=== PATIENT | female | born 1935 | race Caucasian/White ===

== ENCOUNTER 2020-01-02 13:31 | Observation (INO) | payer MEDICARE, OTHER ==
[2020-01-02 14:38] LABS: BASOPHILS % (AUTO) 0.2 %; EOSINOPHILS % (AUTO) 0.1 %; HGB - HEMOGLOBIN 7.7 g/dL (12.0-16.0); LYMPHOCYTES % (AUTO) 24.1 %; MEAN CORPUSCULAR HEMOGLOBIN 27.7 pg (27.0-31.0); MEAN CORPUSCULAR HGB CONC 30.2 g/dL (32.0-36.0); MEAN CORPUSCULAR VOLUME 91.7 fL (81.0-99.0); MEAN PLATELET VOLUME 12.2 fL (7.9-10.8); MONOCYTES % (AUTO) 9.4 %; NEUTROPHILS % (AUTO) 54.5 %; PLT - PLATELET COUNT 88 10^3/uL (130-450); RED BLOOD COUNT 2.78 10^6/uL (4.20-5.40); RED CELL DISTRIBUTION WIDTH 22.5 % (12.0-15.0); WHITE BLOOD COUNT 9.6 x10^3/uL (4.8-10.8)
[2020-01-02 14:41] LABS: ABNORMAL LYMPHS % (MANUAL) 0 %
[2020-01-02 14:42] LABS: INR 1.3 (0.8-1.2)
[2020-01-02 14:50] LABS: ALBUMIN 3.9 g/dL (3.2-5.5); ALBUMIN/GLOBULIN RATIO 1.4 (1.0-2.2); BILIRUBIN,TOTAL 1.3 mg/dL (0.2-1.0); CALCIUM 8.8 mg/dL (8.5-10.3); PARTIAL THROMBOPLASTIN TIME 27.6 secs (24.9-33.3); TOTAL PROTEIN 6.7 g/dL (6.7-8.2)
[2020-01-02 15:13] LABS: BAND NEUTROPHILS % (MANUAL) 6 %; EOSINOPHILS # (MANUAL) 0.1 10^3/uL (0-0.7); LYMPHOCYTES # (MANUAL) 2.4 10^3/uL (1.5-3.5); LYMPHOCYTES % (MANUAL) 25 %; METAMYELOCYTES % (MANUAL) 6 %; MONOCYTES # (MANUAL) 0.5 10^3/uL (0.0-1.0); MYELOCYTES % (MANUAL) 5 %
[2020-01-02 15:16] LABS: PLATELET ESTIMATE, MANUAL DECREASED (<130,000) (NORMAL)
[2020-01-02 15:17] LABS: DIFFERENTIAL COMMENT MANUAL DIFFERENTIAL; PLATELET MORPHOLOGY NORMAL APP (NORMAL)
[2020-01-02 15:30] LABS: BILIRUBIN,URINE NEGATIVE (NEGATIVE); GLUCOSE, URINE (UA) NEGATIVE (NEGATIVE); KETONES,URINE (UA) NEGATIVE (NEGATIVE); LEUKOCYTE ESTERASE, URINE MODERATE (NEGATIVE); NITRITE,URINE POSITIVE (NEGATIVE); OCCULT BLOOD,URINE TRACE-INTA (NEGATIVE); PH,URINE 7.5 PH (5.0-7.5); PROTEIN,URINE 30 mg/dL (NEGATIVE); UROBILINOGEN,URINE 0.2 (NORMAL) E.U./dL (NORMAL)
[2020-01-02 15:47] LABS: CLARITY,URINE HAZY (CLEAR)
[2020-01-02] MEDS ORDERED: cefTRIAXone 1 GM VIAL IVP STA (15:47)
[2020-01-02] MEDS ORDERED: SODIUM CHLORIDE 0.9% 1,000 ML IV STA ×2 (15:48)
--- NOTE | 2020-01-02 15:50 | ED Physician Documentation ---
History of Present Illness - Stated complaint Stated Complaint: WEAKNESS - Chief complaint Chief Complaint: General - History obtained from History obtained from: Patient, Family - History of Present Illness Timing: Today Pain level max: 0 Pain level now: 0 - Additonal information Additional information: 84-year-old female presents to the emergency department with generalized weakness today. She apparently has some sort of myeloproliferative disorder, family is unsure what her actual diagnosis is. She is followed at [facility] in [place]. They state that normally she is unable to take care of herself, today she has been confined to a wheelchair. She had chills this morning. No cough. No rhinorrhea or congestion. Nothing makes it better or worse. Has had to have blood transfusions in the past, does not know what her normal hemoglobin is. Review of Systems Ten Systems: 10 systems reviewed and negative Constitutional: reports: Chills. denies: Fever Throat: denies: Sore throat Cardiac: denies: Chest pain / pressure Respiratory: denies: Cough GI: denies: Nausea, Vomiting, Diarrhea, Hematemesis, Bloody / black stool Skin: denies: Rash Musculoskeletal: denies: Neck pain, Back pain Neurologic: denies: Headache PD PAST MEDICAL HISTORY - Past Medical History Past Medical History: Yes Other Past Medical History: Myeloproliferative disorder, Anemia - Allergies Allergies/Adverse Reactions: Allergies Allergy/AdvReac Type Severity Reaction Status Date / Time No Known Drug Allergies Allergy Verified 01/02/20 13:49 - Living Situation Living Situation: reports: With family Living Arrangement: reports: At home - Social History Does the pt smoke?: No Does the pt have substance abuse?: No PD ED PE NORMAL - Vitals Vital signs reviewed: Yes - General General: Alert and oriented X 3, No acute distress, Other (Frail, thin, pale) - HEENT HEENT: PERRL, Other (Dry lips and tongue) - Neck Neck: Supple, no meningeal sign - Cardiac Cardiac: RRR, Strong equal pulses - Respiratory Respiratory: No respiratory distress, Clear bilaterally - Abdomen Abdomen: Soft, Non tender, Non distended - Back Back: No CVA TTP - Derm Derm: Warm and dry - Extremities Extremities: No edema - Neuro Neuro: Alert and oriented X 3 - Psych Psych: Normal mood, Normal affect Results - Vitals Vitals: Vital Signs - 24 hr 01/02/20 01/02/20 13:41 16:09 Temperature 36.9 C Heart Rate 71 65 Respiratory 18 18 Rate Blood Pressure 153/65 H 139/73 H O2 Saturation 100 100 Oxygen O2 Source Room air - Labs Labs: Laboratory Tests 01/02/20 01/02/20 01/02/20 14:27 14:27 14:27 WBC 9.6 RBC 2.78 L Hgb 7.7 L Hct 25.5 L MCV 91.7 MCH 27.7 MCHC 30.2 L RDW 22.5 H Plt Count 88 L MPV 12.2 H Neut # (Auto) Not Reportable Lymph # (Auto) Not Reportable Floyd # (Auto) Not Reportable Eos # (Auto) Not Reportable Baso # (Auto) Not Reportable Absolute Nucleated RBC Not Reportable Total Counted 100 Band Neuts % (Manual) 6 Abnorm Lymph % (Manual) 0 Metamyelocytes % 6 H Myelocytes % 5 H Nucleated RBC % Not Reportable Neutrophils # (Manual) 5.6 Lymphocytes # (Manual) 2.4 Monocytes # (Manual) 0.5 Eosinophils # (Manual) 0.1 Basophils # (Manual) 0.0 Nucleated RBCs 3 Differential Comment MANUAL DIFFERENTIAL Platelet Estimate DECREASED (<130,000) Platelet Morphology NORMAL JACOB RBC Morph Micro Appear 1+ SCHISTOCYTES PT INR APTT Sodium 136 Potassium 4.1 Chloride 101 Carbon Dioxide 21 Anion Gap 14.0 H BUN 22 H Creatinine 1.0 Estimated GFR (MDRD) 53 L Glucose 130 H Lactic Acid Calcium 8.8 Total Bilirubin 1.3 H AST 20 ALT 16 Alkaline Phosphatase 67 Total Protein 6.7 Albumin 3.9 Globulin 2.8 Albumin/Globulin Ratio 1.4 Lipase 51 Urine Color Urine Clarity Urine pH Ur Specific [place] Urine Protein Urine Glucose (UA) Urine Ketones Urine Occult Blood Urine Nitrite Urine Bilirubin Urine Urobilinogen Ur Leukocyte Esterase Urine RBC Urine WBC Ur Squamous Epith Cells Urine Bacteria Ur Microscopic Review Urine Culture Comments Blood Type B NEGATIVE Blood Type Recheck Antibody Screen NEGATIVE 01/02/20 01/02/20 01/02/20 14:27 14:28 15:18 WBC RBC Hgb Hct MCV MCH MCHC RDW Plt Count MPV Neut # (Auto) Lymph # (Auto) Floyd # (Auto) Eos # (Auto) Baso # (Auto) Absolute Nucleated RBC Total Counted Band Neuts % (Manual) Abnorm Lymph % (Manual) Metamyelocytes % Myelocytes % Nucleated RBC % Neutrophils # (Manual) Lymphocytes # (Manual) Monocytes # (Manual) Eosinophils # (Manual) Basophils # (Manual) Nucleated RBCs Differential Comment Platelet Estimate Platelet Morphology RBC Morph Micro Appear PT 15.0 H INR 1.3 H APTT 27.6 Sodium Potassium Chloride Carbon Dioxide Anion Gap BUN Creatinine Estimated GFR (MDRD) Glucose Lactic Acid Calcium Total Bilirubin AST ALT Alkaline Phosphatase Total Protein Albumin Globulin Albumin/Globulin Ratio Lipase Urine Color YELLOW Urine Clarity HAZY Urine pH 7.5 Ur Specific [place] 1.015 Urine Protein 30 H Urine Glucose (UA) NEGATIVE Urine Ketones NEGATIVE Urine Occult Blood TRACE-INTA Urine Nitrite POSITIVE H Urine Bilirubin NEGATIVE Urine Urobilinogen 0.2 (NORMAL) Ur Leukocyte Esterase MODERATE H Urine RBC 6-10 H Urine WBC 11-25 H Ur Squamous Epith Cells FEW Squamous Urine Bacteria Many H Ur Microscopic Review INDICATED Urine Culture Comments INDICATED Blood Type Blood Type Recheck Cancelled Antibody Screen 01/02/20 15:45 WBC RBC Hgb Hct MCV MCH MCHC RDW Plt Count MPV Neut # (Auto) Lymph # (Auto) Floyd # (Auto) Eos # (Auto) Baso # (Auto) Absolute Nucleated RBC Total Counted Band Neuts % (Manual) Abnorm Lymph % (Manual) Metamyelocytes % Myelocytes % Nucleated RBC % Neutrophils # (Manual) Lymphocytes # (Manual) Monocytes # (Manual) Eosinophils # (Manual) Basophils # (Manual) Nucleated RBCs Differential Comment Platelet Estimate Platelet Morphology RBC Morph Micro Appear PT INR APTT Sodium Potassium Chloride Carbon Dioxide Anion Gap BUN Creatinine Estimated GFR (MDRD) Glucose Lactic Acid 1.6 Calcium Total Bilirubin AST ALT Alkaline Phosphatase Total Protein Albumin Globulin Albumin/Globulin Ratio Lipase Urine Color Urine Clarity Urine pH Ur Specific [place] Urine Protein Urine Glucose (UA) Urine Ketones Urine Occult Blood Urine Nitrite Urine Bilirubin Urine Urobilinogen Ur Leukocyte Esterase Urine RBC Urine WBC Ur Squamous Epith Cells Urine Bacteria Ur Microscopic Review Urine Culture Comments Blood Type Blood Type Recheck Antibody Screen PD MEDICAL DECISION MAKING - ED course Complexity details: reviewed results, re-evaluated patient, selwyn claude jones, d/w patient, d/w family, d/w media consultant outside sales ED course: Records were requested from [facility]. I will not plan on transfusing her at this time as I suspect her normal hemoglobin is around 8. I suspect that they do not transfuse her until she is under 7. Likely that her weakness is more from the urinary tract infection. We will place her in obser vation for further care. We will continue IV rehydration as well as IV antibiotics. Discussed the case with Dr. Marin, hospitalist who accepts This document was made in part using voice recognition software. While efforts are made to proofread this document, sound alike and grammatical errors may occur. Departure - Departure Disposition: ED Place in Observation Clinical Impression: Weakness UTI (urinary tract infection) Qualifiers: Urinary tract infection type: acute cystitis Hematuria presence: without hematuria Qualified Code(s): N30.00 - Acute cystitis without hematuria Anemia Qualifiers: Anemia type: unspecified type Qualified Code(s): D64.9 - Anemia, unspecified Condition: Stable Discharge Date/Time: 01/02/20 17:08
[2020-01-02 15:52] LABS: BACTERIA,URINE Many /HPF (None Seen); SQUAMOUS EPITHELIAL CELL,UR FEW Squamous (<= Few)
--- NOTE | 2020-01-02 16:17 | XRAY Report ---
PROCEDURE: Chest 1 View X-Ray INDICATIONS: weakness, chills TECHNIQUE: One view of the chest was acquired. COMPARISON: None FINDINGS: Surgical changes and devices: None. Lungs and pleura: No pleural effusions or pneumothorax. Lungs are clear. Mediastinum: The aorta is prominent and tortuous. The cardiac contours are within normal limits. Bones and chest wall: No suspicious bony lesions. Age-appropriate degenerative changes are seen. Overlying soft tissues appear unremarkable. IMPRESSION: Normal chest plain films for age, without infiltrates seen. Reviewed by: Mingo Coronado MD on 01/02/2020 3:15 PM AMBER Approved by: Mingo Coronado MD on 01/02/2020 3:15 PM AKDT Station ID: [id number]
[2020-01-02] MEDS ORDERED: ACETAMINOPHEN 325 MG TABLET PO PRN (16:25)
[2020-01-02] MEDS ORDERED: SODIUM CHLORIDE FLUSH 0.9% 10 ML SYRINGE IVP PRN (16:25)
[2020-01-02] MEDS: D5NS W/20 MEQ KCL 1,000 ML IV SCH (17:44)
[2020-01-02] MEDS: SODIUM CHLORIDE FLUSH 0.9% 10 ML SYRINGE IVP SCH ×2 (17:48→23:28)
--- NOTE | 2020-01-02 18:22 | HISTORY & PHYSICAL EXAMINATION ---
DATE OF SERVICE: 01/02/2020 Physician: Gaviota Marin MD HISTORY OF PRESENT ILLNESS: This is an 84-year-old white female who has never been to this hospital. She presents with complaints of weakness and shaking chills. She has a past medical history of myelofibrosis, hemolytic anemia and thrombocytopenia and has required regular transfusions for many years. Because of this, she has become iron overloaded. She also has a history of macular degeneration, for which she takes several vitamins. The patient was last seen at [facility] for her hematologic problems just 4 days ago. She had been on a schedule of every 3-week blood transfusion and platelet transfusions and has been started on Luspatercept. On that visit, she did not get a transfusion because of provider thought that the Luspatercept was improving the anemia. The plan was to skip that transfusion and come back again in 3 weeks. The patient also gets Jadenu 180 mg daily for her iron overload and the notes state there is no evidence of hepatic toxicity. She has been on prednisone with an extremely slow taper and notes state that she was as low as 8 mg but because of a drop in hemoglobin some time recently, the dose was increased to Prednisone 10 mg daily. Today, the patient developed shaking chills and marked weakness. She normally can ambulate and today she was too weak and would only sit in a wheelchair or chair. She came to the Emergency Room. There is no ambulance note or family with her to provide other history. In the Emergency Room, she was found to have an abnormal urinalysis consistent with a UTI and also dehydration, difficult to start an IV and had prerenal azotemia on her labs. She is being placed in Observation for management of her UTI and dehydration. PAST MEDICAL HISTORY: Hemolytic anemia, thrombocytopenia, myelofibrosis, iron overload from years of frequent blood transfusions, macular degeneration. FAMILY HISTORY: No inherited diseases. SOCIAL HISTORY: The patient is a nonsmoker, drinks no alcohol and her home living situation is unknown at this time. MEDICATIONS: 1. Prednisone 10 mg daily. 2. Thalidomide, unknown dose. 3. Sertraline, unknown dose. 4. Vitamin B12. 5. Vitamin C. 6. Vitamin E. 7. Copper, and zinc. 8. Luspatercept unknown dose and frequency. 9. Jadenu 180 mg daily. ALLERGIES: NONE. REVIEW OF SYSTEMS: A comprehensive review of systems was done by chart review, old record review from [facility] and speaking to the patient; the pertinent positives are listed; the rest are negative. PHYSICAL EXAMINATION: GENERAL: Elderly white female. She is very pale. She is in no distress. VITAL SIGNS: Blood pressure 150/80, heart rate 82 in sinus rhythm, currently afebrile at 37.1, room air saturation 95%. HEENT: Reveals pallor and dry oral mucosa. NECK: No JVD. CHEST: Clear. HEART: Normal heart sounds. ABDOMEN: Soft, nontender. No organomegaly. EXTREMITIES: No clubbing, cyanosis or edema. NEUROLOGIC: Grossly intact but appears weak. LABORATORY DATA: Normal electrolytes. BUN is 22, creatinine 1.0. Lactic acid 1.6, bilirubin 1.3. Normal liver tests and lipase. White blood count is 9.6, hemoglobin is 7.7 and her baseline appears to be between 7 and 8, platelet count 88 and her baseline appears to be 94. INR 1.3. Urinalysis: pH of 1.015, high protein, positive nitrites, high leukocyte esterase, many red cells and white cells, many bacteria. CHEST X-RAY: No active pulmonary disease and cardiac size normal. No EKG was done. IMPRESSION/DIAGNOSES 1. Urinary tract infection. 2. Prerenal azotemia. 3. Weakness, probably related to #1 and #2. 4. Autoimmune hemolytic anemia. 5. Thrombocytopenia. 6. History of myelofibrosis. 7. [facility] PLAN: Place the patient in Observation. Start empiric antibiotics after a urine culture has been sent off, using ceftriaxone. Blood cultures were also sent, await these results. Follow her CBC for white count response or fever. Begin IV hydration, follow her BMP daily and also magnesium and calcium. Begin PT and OT to avoid deconditioning. CODE STATUS: FULL CODE. DEEP VENOUS PROPHYLAXIS: Sequential compression devices. ATTESTATION: The patient is expected to be discharged or transferred to another facility within 96 hours: Yes. cc: Anjelica Draper MD TD: 01/02/2020 17:31 MTDD
[2020-01-02] MEDS: FAMOTIDINE 20 MG TABLET PO SCH (21:24)
[2020-01-03] MEDS: D5NS W/20 MEQ KCL 1,000 ML IV SCH (03:27)
[2020-01-03 05:00] LABS: BASOPHILS % (AUTO) 0.1 %; EOSINOPHILS % (AUTO) 0.1 %; LYMPHOCYTES % (AUTO) 31.8 %; MEAN CORPUSCULAR HEMOGLOBIN 27.7 pg (27.0-31.0); MEAN CORPUSCULAR HGB CONC 30.2 g/dL (32.0-36.0); MEAN CORPUSCULAR VOLUME 91.5 fL (81.0-99.0); MEAN PLATELET VOLUME 12.7 fL (7.9-10.8); MONOCYTES % (AUTO) 16.6 %; NEUTROPHILS % (AUTO) 41.8 %; PLT - PLATELET COUNT 78 10^3/uL (130-450); RED BLOOD COUNT 2.24 10^6/uL (4.20-5.40); RED CELL DISTRIBUTION WIDTH 22.5 % (12.0-15.0); WHITE BLOOD COUNT 7.2 x10^3/uL (4.8-10.8)
[2020-01-03 05:27] LABS: CALCIUM 8.4 mg/dL (8.5-10.3); MAGNESIUM 1.7 mg/dL (1.7-2.8)
[2020-01-03 05:39] LABS: HGB - HEMOGLOBIN 6.2 g/dL (12.0-16.0)
[2020-01-03 05:41] LABS: ABNORMAL LYMPHS % (MANUAL) 0 %
[2020-01-03 06:06] LABS: BAND NEUTROPHILS % (MANUAL) 1 %; BASOPHILS # (MANUAL) 0.1 10^3/uL (0-0.1); BASOPHILS % (MANUAL) 1 %; LYMPHOCYTES # (MANUAL) 2.7 10^3/uL (1.5-3.5); LYMPHOCYTES % (MANUAL) 37 %; MONOCYTES # (MANUAL) 0.3 10^3/uL (0.0-1.0); MYELOCYTES % (MANUAL) 4 %; PROMYELOCYTES % (MANUAL) 1 %
[2020-01-03 06:07] LABS: DIFFERENTIAL COMMENT MANUAL DIFFERENTIAL; PLATELET ESTIMATE, MANUAL DECREASED (<130,000) (NORMAL); PLATELET MORPHOLOGY NORMAL APPEARANCE (NORMAL)
[2020-01-03] MEDS ORDERED: predniSONE 10 MG TABLET PO SCH (08:00)
--- NOTE | 2020-01-03 08:00 | Discharge Plan ---
Discharge Plan Problem Reviewed?: Yes Disposition: Home, Self Care Condition: Stable Diet: Regular Activity Restrictions: Activity as Tolerated Shower Restrictions: No Instruction Topics: ED Kidney Infec Female Health Concerns: You were admitted with marked weakness and found to be dehydrated and have a urinary tract infection. You have improved regarding alertness, and there are no bacteria growing in the bloodstream, therefore you are being discharged. A new prescription for antibiotics was sent to your pharmacy in [place]; please complete the entire course of treatment. Resume all your other prehospital medications. Because you required hydration intravenously, this diluted out your red blood cells so it appears that you are more anemic than usual, the hemoglobin today was 6.2. Please have follow-up for this anemia with your providers at [facility]. You need to hydrate with fluids by mouth more aggressively over the next 1 week and in general. Plan of Treatment: As above. Care Goals: Improvement in symptoms and stabilization are the goals. Assessment: The patient and daughter understand and are agreeable with the plan. Additional Instructions or Follow Up instructions: You should see your PCP and [facility] in the next several weeks for follow-up after hospitalization. Also, if you have new or worsening symptoms, call your PCP for advice or come to the emergency room. No Smoking: If you smoke, Please STOP! Call for help. Follow-up with: Anjelica Draper MD [Primary Care Provider] -
[2020-01-03 08:05] VITALS: BP 117/59
[2020-01-03] MEDS: SODIUM CHLORIDE FLUSH 0.9% 10 ML SYRINGE IVP SCH (08:38)
[2020-01-03] MEDS: FAMOTIDINE 20 MG TABLET PO SCH (08:38)
[2020-01-03] MEDS ORDERED: cefTRIAXone 1 GM in SODIUM CHLORIDE 0.9% MINIBAG 100 ML IV SCH (10:30)
--- NOTE | 2020-01-03 11:56 | DISCHARGE SUMMARY ---
Discharge Summary Admit Date: 01/02/20 Discharge Date: 01/03/20 Discharging Provider: Dr. Gaviota Marin Primary Care Provider: Dr Anjelica Draper (PCP), Dr Sameer Castellanos ([facility]) Code Status: Attempt Resuscitation Condition at Discharge: Stable Discharge Disposition: 01 Home, Self Care - HPI History of Present Illness: This is an 84-year-old white female who started living with her daughter during , moved from [place] to [facility]. She has a history of myelofibrosis, hemolytic anemia and thrombocytopenia and is followed at [facility] She has required regular blood transfusions nearly every 3 weeks for many years, her Hgb runs 7-8. She has become iron overloaded. She has a history of macular degeneration and hard of hearing. She developed severe weakness, was not ambulatory and independent as per her usual, and had shaking chills and was brought to the emergency room by the daughter. In the ER she was found to have abnormal urinalysis consistent with a UTI and also dehydration with prerenal azotemia. She is being placed in Observation for management of her UTI and dehydration and new weakness, awaiting any abnormal blood culture results. - HOSPITAL COURSE Hospital Course: 1. Urinary tract infection She had no fever or any shaking chills while here. Her urine cx was pending and blood cultures was still negative the next day. She received 2 days of empiric IV Ceftriaxone. She was discharged to finish 5 more days of oral Keflex t reatment. 2. Prerenal azotemia Clinical exam showed marked skin tenting and slightly dry oral mucosa. She had prerenal azotemia with BUN/creat 22/1.0. IV hydration with saline was given and the following day her BUN/creatinine were 18/1.0. At discharge, encouraging fluid intake was advised. 3. Weakness She was too weak to ambulate at home, sat in the chair and this is why the daughter brought her in. By the time she was being transferred from ER to hospital bed she was more awake and alert and less fatigued. The following morning she had evaluation by physical therapy who felt that she was independent. She does use a quad walker at home and has a wheelchair. 4. Autoimmune hemolytic anemia The admission hemoglobin was 7.7, it dropped to 6.2 the following day, likely due to hemodilution. She was nearly 2 liters positive in fluid balance at the time of discharge. We did not order a blood transfusion while she was here. Was kept on her same Prednisone 10 mg daily and thalidomide dose (capsules from home). 5. Thrombocytopenia The admission platelet count was 88K and on the following day it was 78K. 6. History of myelofibrosis As per Hx. Her non-formulary meds were continued as at home. 7. Macular degeneration Her vision is bad, according to the daughter. She usually just takes vitamins to manage this 8. [place] She needed to read lips. - ALLERGIES Allergies/Adverse Reactions: Allergies Allergy/AdvReac Type Severity Reaction Status Date / Time No Known Drug Allergies Allergy Verified 01/02/20 13:49 - MEDICATIONS Home Medications: Ambulatory Orders Medication Instructions Recorded Confirmed Cephalexin [Keflex] 500 mg PO BID #11 capsule 01/03/20 Deferasirox 180 mg PO DAILY 01/03/20 Mirabegron [Myrbetriq] 50 mg PO DAILY 01/03/20 Sertraline HCl 50 mg PO DAILY 01/03/20 Thalidomide [Thalomid] 50 mg PO DAILY 01/03/20 predniSONE [Prednisone] 5 mg PO DAILY 01/03/20 - PHYSICAL EXAM AT DISCHARGE General Appearance: positive: No acute distress, Alert Eyes Bilateral: positive: Normal inspection, Other ([place] and poor vision) Neck: positive: Nml inspection, No JVD Respiratory: positive: No respiratory distress Cardiovascular: positive: Regular rate & rhythm, No murmur Abdomen: positive: Non-tender, No organomegaly, No distention Skin: positive: Warm, Dry, Pallor Extremities: positive: No pedal edema Neurologic/Psychiatric: positive: Oriented x3 (Non-focal) - LABS Result Diagrams: 01/03/20 04:30 01/03/20 04:30 - DIAGNOSTIC IMAGING Diagnostic Imaging Results: Final report reviewed - FOLLOW UP Follow Up: See PCP and/or [facility] Oncologist soon in hospital follow-up. - TIME SPENT Time Spent in Discharge (Minutes): 35
== END 2020-01-03 12:30 | disposition home or self-care (01) ==
LOC: ED 13:31 → MS2 16:25
PROVIDERS: ADMIT Internal Medicine; ATTEND Internal Medicine
DX: N39.0 Urinary tract infection, site not specified (principal); R79.89 Other specified abnormal findings of blood chemistry; D59.1 Other autoimmune hemolytic anemias; D69.6 Thrombocytopenia, unspecified; D47.1 Chronic myeloproliferative disease; H35.30 Unspecified macular degeneration; H91.90 Unspecified hearing loss, unspecified ear; E83.111 Hemochromatosis due to repeated red blood cell transfusions; Z20.828 Contact with and (suspected) exposure to other viral communicable diseases; E86.0 Dehydration
CPT/HCPCS: 36415; 71045; 80048; 80053; 81001; 83605; 83690; 83735; 85025; 85610; 85730; 86850; 86900; 86901; 86902; 87040; 87086; 96361; 96365; 96366; 96367; 96375; 97162; 99284; 99285; A9270; G0378; U0004; 81003

== ENCOUNTER 2020-01-06 18:39 | Outpatient (CLI) | payer MEDICARE | END 2020-01-06 18:40 | disposition short-term general hospital (02) | LOC: EMS 18:39 | PROVIDERS: ATTEND Surgery | DX: R47.02 Dysphasia (principal); R51 Headache | CPT/HCPCS: A0425; A0427 ==

== ENCOUNTER 2020-02-24 14:00 | Outpatient (CLI) | payer MEDICARE ==
--- NOTE | 2020-02-24 17:22 | CONSULTATION NOTE ---
Palliative Care Consultation - Referral Referring Provider: Anjelica Draper MD Time of Visit: 2845-1132 Referral setting: Home Referral Reason: FTT/Myelofibrosis/Goals of Care - Information Sources Records reviewed: Previous records reviewed, Other (Prov. D/C summary; [facility] notes; Neuro consult) History/Review of Systems obtained from: Patient, Family (daughter Sejal provided most of history at time of visit; f/up with [facility] son) Exam limitations: Clinical condition (patient slow to respond; STM deficits; TANACROSS) - History of Present Illness Brief History of Present Illness: This is an 85-year-old woman I am meeting for the first time for palliative care consult. She has longstanding history of primary myelofibrosis, concurrent warm autoimmune hemolytic anemia, and thrombocytopenia. She originally presented in 2014, with fatigue, weight loss, and night sweats, enlarged spleen, and worsening anemia. She has been transfusion dependent, has been challenged with transfusions because of her antibodies, and has received multiple treatments most recently on thalidomide, until her recent hospitalization. She does have iron overload, and is on Jadenu, and currently on prednisone. She has been averaging transfusions every 3 weeks, most recently was started on luspatercept lyndon 3 weeks, In hopes to decrease her transfusion need. During this time in the last few years to months patient has had ongoing slow functional decline, and concerns for forgetfulness, but more acutely presented first originally at [facility] / urinary tract infection and worsening weakness, and anemic on presentation, did not receive a transfusion at that admit. Visit then presented on 01/05 concern for stroke versus seizures, had neurologic event, and was hospitalized until 01/15/2020. Unfortunately given the Covid pandemic, family was unable to be present with her, she was diagnosed with acute metabolic encephalopathy with dysarthria, and thought to be multifactorial from delirium, dementia, and recent illness along with possible new seizures. They did not see any acute pathology on brain MRI, but was discharged on Keppra, with follow-up to neurology. There have been multiple medication changes happening during this time, as well as received a transfusion with mild reaction. 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 In follow-up patient has seen neurology, had been having episodes of disorientation at night, and nocturia. She has since discharge, had more significant trouble with word finding, difficulty walking though this is improving, worsening short-term memory, and needing cueing. There was concern reported about sundowning behaviors, and patient was given a diagnosis of Late onset Alzheimer's type dementia, with thought to be acute on chronic mental status is changes related to UTI, and neurologist did not think it was a stroke based on imaging. She was continued on Keppra based on abnormal EEG, with consideration of slowing in the future. Patient presents is quite frail, she does have altered gait, does present with slight tremors, and needing cueing for transfers and spatial orientation. She does present with difficulty and delayed answering of questions, does get frustrated with her slow response, she often defers to her daughter. But is able to engage socially, while setting up rapport with patient, she does have some long-term memories, but difficulty with short-term memory questions and/or complicated/open ended questions. She easily gets breathless, does not present with any cough, does appear to be easily fatigued her breath sounds are diminished but clear, she does have trace pedal edema, bruising, and difficulty with balance. Medical/Surgical History - Past Medical History Cardiovascular: reports: Hypertension, High cholesterol, Other (Carotid artery stenosis; right) Respiratory: reports: Shortness of breath Neuro: Dementia (new dx), Migraines Endocrine/Autoimmune: reports: None GI: reports: Other (IBS; lymphocitic colitis) : reports: Incontinence, Frequency HEENT: reports: Macular degeneration, Chronic hearing loss Psych: reports: Depression, Other (concern for sundowning) Musculoskeletal: reports: Osteoarthritis Derm: reports: Other (hx of basal cell of skin LE) MRSA Hx?: No - Past Surgical History General: reports: Other (hernia repair) /SEMICONDUCTOR PACKAGES TESTER: reports: Hysterectomy, Other (benign breast BS) HEENT: reports: Cataracts, Tonsil/Adenoidectomy Derm: reports: Skin cancer surgery - Substance History Use: Uses substance without health or social issues: Alcohol ( 2 drinks week) Social History - Living Situation Living arrangement: At home Living Situation: With spouse/s.o., With family Support System: Patient has 4 children, Ruel is the DPOA, and comes in provides help, including advocacy around medical appointments. Patient and her live with her daughter Sejal, have moved in since July with pandemic. They previously were living in an assisted facility for about 3 years. They originally lived in [place], they have love traveling, they have all travel together. 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 Previous to this episode of hospitalization, she is actually fairly independent, somewhat forgetful but was able to manage. Her is 91, he has multiple health problems as well, and is very weak. They have hired a caregiver 8 hours 5 days a week, to provide him some respite. Family History - Family History Family History: Mother: , Alzheimer's Disease, Hypertension, Father: , CVA/TIA, Sister: Alive and Well Medications/Allergies - Medications Home Medications: Ambulatory Orders Medication Instructions Recorded Confirmed Deferasirox 180 mg PO DAILY 01/03/20 02/24/20 Sertraline HCl 50 mg PO DAILY 01/03/20 02/24/20 predniSONE [Prednisone] 10 mg PO DAILY 01/03/20 02/24/20 Atorvastatin Calcium 40 mg PO DAILY 02/24/20 02/24/20 Cephalexin [Keflex] 250 mg PO DAILY 02/24/20 02/24/20 Donepezil [Aricept] 5 mg PO DAILY 02/24/20 02/24/20 Losartan Potassium 25 mg PO DAILY 02/24/20 02/24/20 Luspatercept-Aamt [Reblozyl] 75 mg SUBQ .Q3 WEEKS 02/24/20 02/24/20 Multivitamin 1 tab PO DAILY 02/24/20 02/24/20 Vit A/Vit C/Vit E/Zinc/Copper 1 tab PO DAILY 02/24/20 02/24/20 [Preservision Areds Softgel] - Allergies Allergies/Adverse Reactions: Allergies Allergy/AdvReac Type Severity Reaction Status Date / Time No Known Drug Allergies Allergy Verified 01/02/20 13:49 Review of Systems - Constitutional Constitutional: reports: Fatigue (worsening), Weakness. denies: Fever, Chills - Eyes Eyes: reports: Vision loss (macular degeneration) - Ears, Nose & Throat Ears, Nose & Throat: reports: Hearing loss, Hearing aids - Cardiovascular Cardiovascular: reports: Edema, Exertional dyspnea, Decr. exercise tolerance. denies: Chest pain - Respiratory Respiratory: reports: SOB with exertion. denies: Cough, Wheezing, SOB at rest - Gastrointestinal Gastrointestinal: reports: Diarrhea (intermittent), Good appetite. denies: Nausea, Reflux/heartburn - Genitourinary Genitourinary: reports: Incontinence - Musculoskeletal Musculoskeletal: reports: Muscle aches, Stiffness, Limited range of motion, Muscle weakness, Assistive devices (using walker; very slow; needing cueing; ataxic gain), Transfer issues - Integumentary Integumentary: reports: Dryness - Neurological Neurological: reports: General weakness, Memory problems (acute change with hospitalization; mild fortgetfulness and mild STM prevvious), Other (word finding issues; slow to respond; processing problematic) - Psychiatric Psychiatric: reports: Depression, Anxiety - Hematologic/Lymphatic Hematologic/Lymph: Anemia (02/18 8.8), Recurrent infections (hx of UTIs currently being treated; no symptoms) - All Other Systems All Other Systems: reports: Other (limited given STM deficits) Physical Exam - Vital Signs Temperature: 97.2 C Pulse Rate: 96 Respiratory Rate: 18 O2 Saturation: 99 (ra @ rest) Blood Pressure: 112/72 - Physical Exam General Appearance: positive: No acute distress, Alert, Anxious, Cachetic Eyes Bilateral: positive: Normal inspection ENT: positive: No signs of dehydration Neck: positive: Trachea midline Cardiovascular: positive: Regular rate & rhythm, Tachycardia Respiratory: positive: No respiratory distress, Breath sounds nml, Diminished in bases. negative: Wheezes, Rales, Rhonchi Abdomen: positive: Non-tender, Soft Skin: positive: Pallor, Dryness, Bruising (LE) Extremities: positive: Pedal edema (trace to one plus) Neurologic/Psychiatric: positive: Disoriented to time, Weakness, Depressed mood/affect, Flat affect Palliative Care - POLST Patient has POLST: No POLST Status: DNR (need POLST completed; discussed form with daughter; DPOA is son Ruel) Pain: No pain Tiredness/Fatigue: Moderate (4-6) Drowsiness/Sedation: Moderate (4-6) Nausea: None Anorexia: None Dyspnea: Moderate (4-6) Depression: Mild (1-3) Anxiety: Mild (1-3) Feelings of wellbeing/Perceived Quality of Life: Worsening (since hospitalization;) Sleep: Sleeps well (up at night to void) Constipation: No Performance Status: Patient's previous level of functioning, she was able to ambulate with a walker around the house, did need some assistance with ADLs. Currently she is quite dependent, needing cueing for ambulating with walker, fatigues quite easily by the end of the day, needs assistance with bathing, transfers, she is able to self feed. She has had increased incontinence, those not bowel incontinent. She does walk with a halted walk, balance is poor, and appears quite weak in evaluating her gait. She has had home health PT and OT on discharge from hospital, has made some improvements, but is not back to previous level of functioning. - Palliative Care Discussion: Met with daughter Sejal, her goals for mother to are to focus on quality of life issues, hopefully need to avoid hospitalization and further ED visits. She does recognize the frailty of her parents in general, and her mother's decline. She is fearful her mother is afraid of the word palliative and hospice, agreed to can integrate and evaluate and set rapport without focusing on these issues, as far as using those "words". She reports they do have advanced directives, the children are in agreement for a palliative approach, do need to complete their POLST. We discussed at length the goal of a POLST, with recommendation of DN AR and selective treatments given her goals at this point in time. We also discussed the importance of having this in the home, if they were to pass in her sleep, we also discussed if she were to continue decline the continuum of care including hospice. Did provide her with "hard choices for loving People" and recommended given her frailty, they have a conversation is a family, patient did not present with decision-making capacity as far as the nuances in weighing the implications of these decisions. Spoke with son Ruel, IMTIAZ, he has been help navigate medical appointments as he is retired and both for his mother and father. He does provide support and assist with respite for Sejal. He is actively involved in exploring how best to support his mother, looking at quality of life issues. When asked patient what she worries about most, it is about her daughter and being a burden. She is very grateful to be where she sat, she very much enjoys her family, she is able to recall her long-term memories, defers to her daughter frequently regarding questions that require short-term memory. Did discuss the other members of her team, including the lock operator, her loly was a big part of their support, they have been watching streaming programs. They will consider and will revisit next visit. Results - Lab Results Lab results reviewed: Yes Lab and Imaging Results: 1019 labs include glucose 109, BUN 14, sodium 130, potassium 4.2, total protein 6.6, albumin 4.0, WBC 13.8, continues elevated but decreasing, hemoglobin 8.8, hematocrit 26.4, platelet count 58,000. Impression and Recommendations - Palliative Care Impression: This is a sweet but fragile 85-year-old woman with multiple comorbidities, adding to her frailty is her long standing primary myelofibrosis, transfusion dependent, new diagnosis of late onset Alzheimer's, recent acute hospitalization with multiple medication changes, and persistent UTI. Patient has been having s low functional and cognitive decline to the year, but more acutely with recent hospitalization. Patient is well supported, her and her elderly live with her daughter, with support from paid caregiving and other family. Palliative care to provide support for symptom management and care needs, and anticipatory guidance. Recommendations/Counseling Done: 1. Alzheimer's dementia. Patient recently started on donepezil, currently has not had any side effects of diarrhea or nausea. Family was somewhat surprised by her diagnosis, though she had been having increased forgetfulness, but has had more acute changes with recent hospitalization. Unclear if patient had defined seizures, currently on Keppra, neurologist did mention may decrease in the future, will monitor given her slowing, difficulty with processing, side effects noted impact on counts with adverse reactions of pancytopenia, will need to be closely watched, patient does have new hyponatremia as well. Patient is being closely monitored by her oncologist, and PCP given the fragility of her situation. Will evaluate neuro status and findings in comparison to today's and follow-up with neurology if concerns. Daughter with any concerns, how best to support her mom, given her new diagnosis. We did discuss engaging with her new caregiver with companionship, balancing over stimulation, with simple activities. Patient has macular degeneration and is hard of hearing, so challenged both with neuro deficits as well. Recommended given the goal for palliative care approach, to look at life review, using photograph albums, reading to this patient versus audiobooks, and keeping things in a routine and structured. 2. Fragility. Patient is at high risk for falls, is working with home health physical therapy, is complicated balance with patient's fatigue secondary to anemia and deconditioning. Patient has had minimal weight loss, they are encouraging hydration particularly in the setting of history of UTI, patient continues at risk for ongoing decline. Counseling provided regarding the challenge given balancing quality of life issues, multiple health problems, and taking each decision to weigh benefits and burdens as they come up. Will explore further patient's goals of care and perception of her quality of life, continue to develop rapport. 3. Advanced care planning. Patient does have a DURABLE POWER OF ISSUER, with Ruel Beltran's son DPOA [phone], Does not have a POLST. Counseling provided to Sejal regarding the role of the POLST given patient's high risk for sequela of another fall and/or concern of an event. Patient also at high risk for rehospitalization. Provided "hard choices for loving People", counseling provided regarding the continuum of care from palliative care to hospice. Provided forms, I encouraged Sejal to talk with her siblings, will need Ruel to participate in POLST, as of this moment we will have to reevaluate patient does not present with sophisticated decision-making capacity of weighing the nuances around POLST decisions, she certainly can wait in as far as her values and healthcare believes. Plan for follow-up in 3 weeks. Time Spent: 75 minutes with greater than 50% of this done in counseling regarding disease trajectory, continuum of care, palliative care versus hospice, and anticipatory guidance.
== END 2020-02-24 14:01 | disposition home or self-care (01) ==
LOC: PC 14:00
PROVIDERS: ATTEND Nurse Practitioner Adult Health
DX: Z51.5 Encounter for palliative care (principal); G30.9 Alzheimer's disease, unspecified; F02.80 Dementia in other diseases classified elsewhere, unspecified severity, without behavioral disturbance, psychotic disturbance, mood disturbance, and anxiety; R53.81 Other malaise; Z91.81 History of falling; D47.1 Chronic myeloproliferative disease; Z66 Do not resuscitate
CPT/HCPCS: 99345

== ENCOUNTER 2020-03-11 14:00 | Outpatient (CLI) | payer MEDICARE ==
--- NOTE | 2020-03-11 20:30 | CONSULTATION NOTE ---
Palliative Care Follow Up - Referral Referring Provider: Dr. Anjelica Draper Time of Visit: 7626-5068 Referral setting: Home Referral Reason: FTT/Myelofibrosis/Goals of Care - Information Sources Records reviewed: Previous records reviewed History/Review of Systems obtained from: Patient, Family (daughter Sejal and son/IMTIAZ Lipscomb) Exam limitations: Clinical condition (patient with significant STM deficits) - History of Present Illness Update Brief HPI Update: Please see consult 02/23 for more complete HPI. This is a 85-year-old woman who has longstanding history of primary myelofibrosis, concurrent warm autoimmune hemolytic anemia, and thrombocytopenia. She has been transfusion dependent, has had a good response to her recent initiation of Luspatercept every 3 weeks. The goal is to decrease her transfusion needs, and her most recent hemoglobin last Sunday was 8.5. Previous to this she had been averaging transfusions about every 3 weeks, and has iron overload currently on the deferasirox. Patient had a extended hospitalization at [facility], for concern of stroke versus seizures, and diagnosed with acute metabolic encephalopathy and dysarthria, thought to be multifactorial from delirium, dementia, recent illness along with new possible seizures. She has been recently on Keppra 500 mg twice a day, with expressed concern by family regarding patient's cognitive decline, more notable since acute hospitalization, as well as increasing episodes of disorientation at night, and trouble with word finding, difficulty walking, does appear like a festinating gait, family notes worse with incline. Patient does need considerable cueing, but has improved some but not near baseline. Patient has not demonstrated any further seizure-like activity, no absent seizures, she does have slight tremors, and does have considerable lower extremity weakness. She does defer to her daughter quite a bit with any kind of questions, but is willing and trying to engage in social conversation with HUMAN RESOURCE INTERN. Patient does express increased difficulty with fatigue. Daughter reports patient up at least 3 times during the night, with mild confusion, and needing assistance. She does present with caregiver fatigue. She does sleep in the morning, and easily falls asleep during the day. They do have a caregiver now who is trying to engage and help keep her up, she often wants to go to bed at 6:00 pm. Patient is quite pleasant, denies she has any worries, she does not present with medical decision-making capacity, and has very little insight into the seriousness of her illness. Though she does admit to she and her getting old. Past Medical History: Hypertension high cholesterol carotid arterial stenosis right, migraines, IBS, lymphocytic colitis, incontinence, macular degeneration, chronic hearing loss, depression, osteoarthritis, history of basal cell skin of skin lower extremities, myelofibrosis since 2015, Transfusion dependent with antibodies, new diagnosis of late onset Alzheimer's, seizure disorder Social History - Living Situation Living arrangement: At home Living Situation: With spouse/s.o., With family Support System: Patient lives with her daughter Sejal, they moved in from assisted living with the in beginning of the pandemic in July. They had previously been living in assisted living for about 3 years. They originally lived in [place]. Her is also quite frail very hard of hearing. They have hired a caregiver Eun 5 days a week, which is helped tremendously. Patient does have 4 children, Ruel is the DPOA and transports and takes medical appointments, her younger brother does come over and helps on weekends. Medications/Allergies - Medications Home Medications: Ambulatory Orders Medication Instructions Recorded Confirmed Deferasirox 180 mg PO DAILY 01/03/20 03/11/20 Sertraline HCl 50 mg PO DAILY 01/03/20 03/11/20 predniSONE [Prednisone] 10 mg PO DAILY 01/03/20 03/11/20 Donepezil [Aricept] 10 mg PO DAILY 02/24/20 03/11/20 Losartan Potassium 25 mg PO DAILY 02/24/20 03/11/20 Luspatercept-Aamt [Reblozyl] 75 mg SUBQ .Q3 WEEKS 02/24/20 03/11/20 Vit A/Vit C/Vit E/Zinc/Copper 1 tab PO DAILY 02/24/20 03/11/20 [Preservision Areds Softgel] Cholecalciferol (Vitamin D3) 2,000 units PO DAILY 03/11/20 03/11/20 [Vitamin D3] Levetiracetam [Keppra] 500 mg PO BID 03/11/20 03/11/20 Magnesium 250 mg PO DAILY 03/11/20 03/11/20 Potassium Chloride [Micro-K] 10 meq PO DAILY 03/11/20 03/11/20 - Allergies Allergies/Adverse Reactions: Allergies Allergy/AdvReac Type Severity Reaction Status Date / Time No Known Drug Allergies Allergy Verified 01/02/20 13:49 Review of Systems - Constitutional Constitutional: reports: Fatigue (worsening), Weakness. denies: Fever, Chills - Eyes Eyes: reports: Vision loss (macular degeneration) - Ears, Nose & Throat Ears, Nose & Throat: reports: Hearing loss, Hearing aids - Respiratory Respiratory: reports: SOB with exertion. denies: Cough, Wheezing, SOB at rest - Gastrointestinal Gastrointestinal: reports: Diarrhea (intermittent), Good appetite. denies: Nausea, Reflux/heartburn - Genitourinary Genitourinary: reports: Incontinence - Musculoskeletal Musculoskeletal: reports: Muscle aches, Stiffness, Limited range of motion, Muscle weakness, Assistive devices (using walker; very slow; needing cueing; ataxic gain), Transfer issues - Integumentary Integumentary: reports: Dryness - Neurological Neurological: reports: General weakness, Memory problems (acute change with hospitalization; mild fortgetfulness and mild STM prevvious), Other (word finding issues; slow to respond; processing problematic) - Psychiatric Psychiatric: reports: Depression, Anxiety - Hematologic/Lymphatic Hematologic/Lymph: Anemia (02/18 8.8), Recurrent infections (hx of UTIs c urrently being treated; no symptoms) - All Other Systems All Other Systems: reports: Other (limited given STM deficits) Physical Exam - Physical Exam General Appearance: positive: No acute distress, Alert, Anxious, Cachetic Eyes Bilateral: positive: Normal inspection ENT: positive: No signs of dehydration Neck: positive: Trachea midline Cardiovascular: positive: Regular rate & rhythm, Tachycardia Respiratory: positive: No respiratory distress, Breath sounds nml, Diminished in bases. negative: Wheezes, Rales, Rhonchi Abdomen: positive: Non-tender, Soft Skin: positive: Pallor, Dryness, Bruising (LE) Extremities: positive: Pedal edema (trace to one plus) Neurologic/Psychiatric: positive: Disoriented to time, Weakness, Depressed mood/affect, Flat affect Palliative Care - POLST Patient has POLST: Yes POLST Status: DNR, Selective Treatment Pain: No pain Tiredness/Fatigue: Moderate (4-6) Drowsiness/Sedation: Moderate (4-6) Nausea: None Anorexia: None Dyspnea: Mild (1-3) Depression: Mild (1-3) Anxiety: Moderate (4-6) Feelings of wellbeing/Perceived Quality of Life: Fair, Worsening Sleep: Sleeps poorly, Variable sleep pattern Constipation: No Performance Status: Patient is finished with home health physical therapy, does have home exercise program. Has been somewhat resistant, to doing. She does walk short distances with encouragement, but it is quite difficult for her, and very tiring. She is dependent for bathing, does need cueing for transfers and activities. She is able to self feed. She does spend most of her time in the wheelchair, and is quite sedentary. She does sleep quite a bit during the day. I would put her at a PPS of 40% - Palliative Care Discussion: Patient presents with very little insight to the seriousness of her illness other than she is of advanced age. She does not seem distressed today, does engage in some banter, does seem a little bit more bright and and conversant. She was slightly suspicious of me at last visit, but seems relaxed today. She denies any worries or concerns, did not have any questions. She does defer to her daughter for any kind of medical questions or even how she is feeling. Given patient does not present with decisional medical capacity, and able to alissa gh the nuances regarding advanced directives, I met with her daughter Sejal and IMTIAZ Lipscomb. I do have a healthcare directive she had filled out in September 2017, that does default to if she has a terminal condition, which given her diagnoses she would not want to have artificial nutrition hydration CPR respirator intubation. This seems consistent with filling out the POLST as DNA R, and selective treatments. This defaults to DNI, and allows transport to the hospital. Both daughter and son are quite clear they want to wait benefits and burdens of any interventions in the context of quality of life issues and not to prolong suffering. They do recognize the seriousness of frailty of their mother, and are hoping to maximize her quality of life in her current setting. They would like at end-of-life to be able to have her home for a dignified and respectful , we did discuss in the context of that continuum sometimes is difficult with transfusion dependent diagnoses, though currently she is doing well on the new medication. Results - Lab Results Lab results reviewed: Yes Lab and Imaging Results: Review of labs from her last blood draw on Sunday, within normal limits, albumin was 3.9, CHEM panel was without any abnormal findings, her WBC remained elevated at 11.38, and hemoglobin 8.5 Impression and Recommendations - Palliative Care Impression: This is a fragile 85-year-old woman with multiple comorbidities, adding to her frailty is her longstanding primary myelofibrosis, transfusion dependent anemia, new diagnosis of late onset Alzheimer's, recent acute hospitalization with multiple medication changes, and recurrent UTIs. She has had slow functional decline over the last year, and more acute cognitive decline since hospitalization. Patient is well supported, her elderly and she lives with her daughter with support from paid caregiving and other family members. Palliative care to provide support for symptom management and care needs as well as anticipatory guidance. Recommendations/Counseling Done: 1. Late onset Alzheimer's dementia. Patient has been increased on her donepezil up to 10 mg, currently not having any side effects of diarrhea or nausea. Family remains somewhat concerned regarding diagnosis, feels more acute changes since hospitalization. Discussion at length regarding consideration of titration of Keppra, wondering if adding to her cognitive slowing and confusion. Patient has not demonstrated any seizure activity up to this point, we did discuss the risk versus the benefit, they would like to move forward with a trial. Will reach out to her neurologist, regarding titration, would recommend decreasing to 250 twice daily as first step. We will also provide urgent kit, of lorazepam 10 tabs 0.5 mg in home as they do want to avoid hospitalization or ED visit. 2. Insomnia. Patient still having alteration in wake sleep cycles, daughter is quite exhausted with caregiver fatigue. We did discuss in the context of making changes, would recommend waiting before adding sleep med. They had stopped melatonin at 10 mg, thinking this was adding to her dream state, have not noticed any differences. Recommended could retry but would recommend at lower dose of 5 mg. 3. Fragility. Patient remains at high risk for falls, has completed home health physical therapy, does have severe balance issues and deconditioning. We will continue to monitor, did discuss that "falls happen", minimizing risk is important but patient can be impulsive, as well as her weakened state. 4. Left elbow skin tear. This does have bruising, is healing, is almost a week old. Counseling provided regarding management of skin tears in fragile skin, wash with warm soapy water, apply Neosporin try to replace his skin, placed Telfa and wrap gently. 5. Lower extremity edema. Patient does sit with feet dependent, dislikes and finds support hose uncomfortable. Recommended get safe and vault service mechanic support hose i.e. diabetic support socks, that can get on and off quite easily, but does also allow breathability. 6. Recurrent UTIs. Patient with recent UA, still positive but not high bacteria count per their understanding. We did discuss in the context of incontinence, elderly women always do test positive, and colonization versus infection. She has been on prophylactic Keflex in the past, patient does have E. coli positive per their understanding, recommended considering d-mannose 1 g twice daily as an alternative. Daughter does report it is challenging for good pericare. 7. Advanced care planning. Patient's DURABLE POWER OF INTERVENTIONAL RADIOLOGY RN is Ruel Reina [phone]. We did complete the POLST with DNA R/DNI and selective treatments. Goals of care were reiterated with focus on quality of life, spending time with family, avoiding emergency room and hospitalization. They do recognize the seriousness of her illness. Patient does not present with decision-making capacity in the context of nuances of POLST. Her healthcare directive does support current completion. Will get copy to hospital as well as PCP.Counseling provided regarding placement on refrigerator and or way to notify EMS if had to call 911. Time Spent: 75 minutes with greater than 50% of this done in counseling regarding goals of care, management of symptoms, completion of advance care planning document POLST, and anticipatory guidance.
== END 2020-03-11 14:01 | disposition home or self-care (01) ==
LOC: PC 14:00
PROVIDERS: ATTEND Nurse Practitioner Adult Health
DX: Z51.5 Encounter for palliative care (principal); G30.1 Alzheimer's disease with late onset; F02.80 Dementia in other diseases classified elsewhere, unspecified severity, without behavioral disturbance, psychotic disturbance, mood disturbance, and anxiety; G47.27 Circadian rhythm sleep disorder in conditions classified elsewhere; N39.0 Urinary tract infection, site not specified; R32 Unspecified urinary incontinence; R53.1 Weakness; R26.2 Difficulty in walking, not elsewhere classified; R60.0 Localized edema; S51.012D Laceration without foreign body of left elbow, subsequent encounter; D69.6 Thrombocytopenia, unspecified; D47.1 Chronic myeloproliferative disease; D59.11 Warm autoimmune hemolytic anemia; Z79.899 Other long term (current) drug therapy; Z66 Do not resuscitate
CPT/HCPCS: 99350

== ENCOUNTER 2020-03-22 08:00 | Outpatient (CLI) | payer MEDICARE ==
[2020-03-22 20:05] LABS: BILIRUBIN,URINE NEGATIVE (NEGATIVE); GLUCOSE, URINE (UA) NEGATIVE (NEGATIVE); KETONES,URINE (UA) NEGATIVE (NEGATIVE); LEUKOCYTE ESTERASE, URINE NEGATIVE (NEGATIVE); NITRITE,URINE POSITIVE (NEGATIVE); OCCULT BLOOD,URINE NEGATIVE (NEGATIVE); PH,URINE 7.5 PH (5.0-7.5); PROTEIN,URINE NEGATIVE (NEGATIVE); UROBILINOGEN,URINE 0.2 (NORMAL) E.U./dL (NORMAL)
[2020-03-22 20:06] LABS: CLARITY,URINE CLEAR (CLEAR)
[2020-03-22 20:18] LABS: RBC,URINE None Seen /HPF (0-5); SQUAMOUS EPITHELIAL CELL,UR RARE Squamous (<= Few)
[2020-03-22 20:19] LABS: BACTERIA,URINE Moderate /HPF (None Seen)
== END 2020-03-22 23:59 | disposition home or self-care (01) ==
LOC: LAB.R 08:00
PROVIDERS: ATTEND Nurse Practitioner Adult Health
DX: R30.0 Dysuria (principal)
CPT/HCPCS: 81001; 81003; 87086

== ENCOUNTER 2020-03-22 15:19 | Outpatient (CLI) | payer MEDICARE | END 2020-03-22 15:20 | disposition home or self-care (01) | LOC: LAB.S 15:19 | PROVIDERS: ATTEND Nurse Practitioner Adult Health | DX: Z53.9 Procedure and treatment not carried out, unspecified reason (principal) ==

== ENCOUNTER 2020-03-22 15:30 | Outpatient (CLI) | payer MEDICARE ==
--- NOTE | 2020-03-22 19:42 | CONSULTATION NOTE ---
Palliative Care Follow Up - Referral Referring Provider: Dr. Cristina Draper Time of Visit: 5314-2135 Referral setting: Home Referral Reason: Venous stasis ulcer left leg; labial lesion; Myelofibrosis - Information Sources Records reviewed: Previous records reviewed History/Review of Systems obtained from: Patient, Family (daughter Sejal) Exam limitations: Clinical condition (patient with STM deficits) - History of Present Illness Update Brief HPI Update: This is an 85-year-old woman who has longstanding history of primary myelofibrosis, concurrent warm autoimmune hemolytic anemia, and thrombocytopenia. She is currently on luspatercept every three weeks, Due for shot this Sunday, the goal of the medications to decrease her transfusion needs and she is not needed transfusion since 01/15. Previous to this she been averaging transfusions about every 3 weeks, and has iron overload currently on deferasirox. Patient had extended hospitalization at [facility] for concern of stroke versus seizures, and was put on Keppra twice a day. She had had ongoing cognitive decline, which have been notable since acute hospitalization, with increasing episodes of disorientation at night, trouble with word finding, difficulty walking, festinating gait, and worsening fatigue. After consultation with neurologist, have tapered down Keppra, last 125 mg dose, due this Sunday. She is doing much better, much clearer, sleeping less during the day, continues with some word finding, but is less confused, and able to engage better in conversation. She still presents with some short-term memory issues, and deferring to daughter, but is much better from baseline prior visits. Family and patient quite pleased with her progress. Patient with known consistent recurrent UTIs, this is been challenging to manage, given she has been almost continuous antibiotics for last 3 months. She was off for about a week and a half, and spiked a temp of 102.8, no chills, but some mild confusion and discomfort. Unfortunately this was coming into the weekend, attempted to get UA prior to antibiotics, but with power outage unable to get to clinic/lab. Patient is currently on Cipro 500 mg twice daily, with no further temp, and improvement of symptoms. The patient at baseline leaks urine constantly, and on examination today she has a fairly large 1.5 cm lesion on her left labia, very raw and almost herpetic in appearance. Patient also in the meantime last , developed a worsening ulcer, patient has longstanding venous stasis. They did go to the walk-in clinic, lesion is about 2.2 cm area, tender to touch, no erythema, but easily bleeds. Daughter is doing wound care, using Kaltostat and Telfa, with gentle wrap for pressure control. Patient does have lower extremity edema. Though it is improved, it is slow in healing, and could use support and supervision of home health RN, as well as further direction for dressing changes. They had been doing them daily, recommend change to at least 2 to 3 days, as causing retrauma to area. Past Medical History: Hypertension, hypercholesterol, carotid arterial stenosis right, migraines, IBS, lymphocytic colitis, incontinence, macular degeneration, chronic hearing loss, depression, osteoarthritis, history of basal cell skin of lower extremities, myelofibrosis since 2014, transfusion dependent with antibodies, new diagnosis of late onset Alzheimer's, seizure disorder. Social History - Living Situation Living arrangement: At home Living Situation: With spouse/s.o., With family Support System: And has lived with her daughter Sejal since moving in with them from the beginning of pandemic in July. They previously lived in assisted living for about 3 years. Her accompanies her he is quite frail and very hard of hearing. They have a hired caregiver Eun 5 days a week, which is helping tremendously. Patient does have 4 children, Ruel is the DPOA and transports and takes medical appointments, her younger brother does come over and help on weekends, Sejal is the main caregiver. Medications/Allergies - Medications Home Medications: Ambulatory Orders Medication Instructions Recorded Confirmed Deferasirox 180 mg PO DAILY 01/03/20 03/23/20 Sertraline HCl 50 mg PO DAILY 01/03/20 03/23/20 predniSONE [Prednisone] 10 mg PO DAILY 01/03/20 03/23/20 Donepezil [Aricept] 10 mg PO DAILY 02/24/20 03/23/20 Losartan Potassium 25 mg PO DAILY 02/24/20 03/23/20 Luspatercept-Aamt [Reblozyl] 75 mg SUBQ .Q3 WEEKS 02/24/20 03/23/20 Vit A/Vit C/Vit E/Zinc/Copper 1 tab PO DAILY 02/24/20 03/23/20 [Preservision Areds Softgel] Cholecalciferol (Vitamin D3) 2,000 units PO DAILY 03/11/20 03/23/20 [Vitamin D3] Levetiracetam [Keppra] 125 mg PO BID MDD taper done 03/2603/11/20 03/23/20 Magnesium 250 mg PO DAILY 03/11/20 03/23/20 Potassium Chloride [Micro-K] 10 meq PO DAILY 03/11/20 03/23/20 Ciprofloxacin HCl [Cipro] 500 mg PO BID MDD 03/2903/23/20 03/23/20 Melatonin/Pyridoxine [Melatonin 5 5 mg PO QPM 03/23/20 03/23/20 mg Tablet] - Allergies Allergies/Adverse Reactions: Allergies Allergy/AdvReac Type Severity Reaction Status Date / Time No Known Drug Allergies Allergy Verified 01/02/20 13:49 Review of Systems - Constitutional Constitutional: reports: Fatigue (worsening), Weakness. denies: Fever (spiked temp 102.8 03/19; afebrile since starting AB), Chills - Eyes Eyes: reports: Vision loss (macular degeneration) - Ears, Nose & Throat Ears, Nose & Throat: reports: Hearing loss, Hearing aids - Cardiovascular Cardiovascular: reports: Edema, Exertional dyspnea, Decr. exercise tolerance - Respiratory Respiratory: reports: SOB with exertion. denies: Cough, Wheezing, SOB at rest - Gastrointestinal Gastrointestinal: reports: Diarrhea (intermittent), Good appetite. denies: Nausea, Reflux/heartburn - Genitourinary Genitourinary: reports: Incontinence - Musculoskeletal Musculoskeletal: reports: Muscle aches, Stiffness, Limited range of motion, Muscle weakness, Assistive devices (using walker; very slow; needing cueing; ataxic gain), Transfer issues - Integumentary Integumentary: reports: Dryness, Other (LLE venous stasis ulcer; left arm trauma wound at elbow) - Neurological Neurological: reports: General weakness, Memory problems (acute change with hospitalization; mild fortgetfulness and mild STM prevvious), Other (word finding issues; slow to respond; processing problematic) - Psychiatric Psychiatric: reports: Depression, Anxiety, Other (up less at night; sleeping until 430) - Endocrine Endocrine: reports: Intolerance to cold - Hematologic/Lymphatic Hematologic/Lymph: Anemia (02/18 8.8), Recurrent infections (hx of UTIs currently being treated) - All Other Systems All Other Systems: reports: Other (limited given STM deficits) Physical Exam - Vital Signs Temperature: 96.5 C Pulse Rate: 62 Respiratory Rate: 18 O2 Saturation: 95 (ra @ rest) Blood Pressure: 112/62 - Physical Exam General Appearance: positive: No acute distress, Alert, Cachetic, Other (much more relaxed and engaged; able to focus on conversation) Eyes Bilateral: positive: Normal inspection ENT: positive: No signs of dehydration Neck: positive: Trachea midline Cardiovascular: positive: Regular rate & rhythm Respiratory: positive: No respiratory distress, Breath sounds nml, Diminished in bases. negative: Wheezes, Rales, Rhonchi Abdomen: positive: Non-tender, Soft Skin: positive: Pallor, Dryness, Bruising (LE), Wound (LLE lateral side; 2.0 cm area shallow with easily bleeding; skin edges without erythema; has had chronic wounds on and off; this was acute and painful; opened last . Small scabbed are left elbow from skin tear/trauma healing well; 1 cm black eschar- covered with dressing for protection), Other (lesion on left labia; concern for candidiasis) Extremities: positive: Pedal edema (Worsening pedal edema left greater than right; pooling in left ankle with diffuse redness; has support aditya on left; jobst on right;) Neurologic/Psychiatric: positive: Mood/affect nml, Disoriented to time, Weakness Palliative Care - POLST Patient has POLST: Yes POLST Status: DNR, Selective Treatment Pain: Location (pain at LLE wound only) Tiredness/Fatigue: Moderate (4-6) Drowsiness/Sedation: Moderate (4-6) (improved sleeping less in day) Nausea: None Anorexia: None Dyspnea: Moderate (4-6) (with any activity) Depression: Mild (1-3) (improved; much brighter and engaged; trying to joke) Anxiety: Mild (1-3) Feelings of wellbeing/Perceived Quality of Life: Fair, Acceptable, Improved Sleep: Sleep improved Constipation: No Performance Status: Patient still needing cueing and assistance from sitting to standing, is ambulatory with her walker, does get dyspneic on exertion. She has less for hesitancy, does intend to let the walker get ahead of her. She is quite sedentary, and easily fatigued with walking. Did have her walk though back to the bedroom, and did fairly well. She does need assistance with toileting, bathing, but can self feed. I would put her at a PPS of 40% - Palliative Care Discussion: Patient better able to engage in conversation today, she is feeling quite grateful and relaxed. She denies any acute worries, daughter Sejal who is present, is quite pleased with her progress. Sejal feels her mother is much closer to her baseline, with much more alertness, though she still has some word finding and forgetfulness, nights are going much better. Goals remain to focus on quality of life issues and take things as they come. Results - Lab Results Lab and Imaging Results: UA was collected today, unfortunately this was after she started antibiotics due to power outage. Unclear if this will give us any helpful information, but if not responsive to antibiotics will at least have a start on C & S. Left "kit" for next time to reduce barriers for delay. She will call before submits. Impression and Recommendations - Palliative Care Impression: This is a fragile 85-year-old woman with multiple comorbidities, adding to her frailty is her longstanding primary myelofibrosis, new diagnosis of late onset Alzheimer's, and recurrent UTIs. She has had a slow functional decline over the last year, and more acute cognitive decline though has improved with discontinuing the Keppra. Patient now with new left lower extremity venous stasis wound, will benefit from home health RN support for wound care. Patient is well supported, as well as her elderly by her daughter. Palliative care to provide support for symptom management, coordination of care, as well as anticipatory guidance. Recommendations/Counseling Done: 1. Late onset Alzheimer's dementia, without behavioral disturbances. Patient is currently on donepezil, up to 10 mg. Currently not having side effects of diarrhea or nausea. Did titrate Keppra down, will finish this Sunday at 125 mg. Patient is continued to improve as far as mental status, increased clarity, easier to engage in conversation, and some improvement of her functional status from baseline. She has not shown any signs or symptoms of any seizure activity. They are pleased with her progress. She does see the neurologist in May. 2. Insomnia. Patient is having significant alteration in wake/sleep cycles. Have restarted melatonin at lower dose of 5 mg, as well as combination of titration of Keppra, she is sleeping better and only up usually 1 time at 4:30 AM with less sundowning behaviors. 3. UTI. Patient presented with acute febrile episode, patient with longstanding incontinence, does not present today with any suprapubic tenderness, she does have a lesion on her left labia, appears herpetic in nature. She does constantly leak urine. Applied Aquaphor for protection, and instructed to get Cavilon barrier cream to apply twice a day. We will continue to monitor, had consider treating for candidiasis, but significant interaction between fluconazole and Cipro, will wait till finishes antibiotics. She is currently on Cipro 500 mg twice daily, unfortunately unable to get a UA secondary to power outage before starting AB. 4. Venous stasis ulcer left lower extremity. Patient had been seen at walk-in clinic, they are using Kaltostat, with Telfa. Most likely needs more moisture, would recommend Xeroform and wound bed. Will go ahead and initiate home health RN for supervision and wound care for evaluate and treat. Instructed to decrease wound change dressings at this point to every 2 to 3 days. They are doing pressure wraps, as patient also has increased lower extremity edema. 5. Lower extremity edema. Patient does have Aditya wrap on her left, and Jobst stocking on the right. She dislikes the pressure, but is tolerating as she does sit with her feet dependent. We will continue to monitor, may benefit from small dose of diuretic. 6. Deconditioning. Did encourage a progressive ambulation program, of taking short distances more frequently and encouraging patient to walk to table for meals/walk to bedroom for toileting. With decrease with Keppra, patient is more stable, though still needs cueing and contact assist. 7. Advanced care planning. Patient's D[employer]ABLE [employer]OWER [employer] LEAD[employer] is Ruel Beltran [phone]. Last meeting we did complete a POLST with DNA R/DNI and selective treatments, patient at that time was unable to participate given her cognitive issues, her healthcare directive does support current completion. Goals of care of the family were to focus on quality of life, spending time with family, and avoiding emergency room and hospitalization. [id number]. It is a taxing considerable effort for the patient to leave the home, patient will require home health RN for wound care, monitoring for signs and symptoms of infection, and monitor response to medications. Time Spent: 60 minutes with greater than 50% of this done in the context of coordination of care, evaluating current symptoms and management, and anticipatory guidance.
== END 2020-03-22 15:31 | disposition home or self-care (01) ==
LOC: PC 15:30
PROVIDERS: ATTEND Nurse Practitioner Adult Health
DX: Z51.5 Encounter for palliative care (principal); G30.1 Alzheimer's disease with late onset; F02.80 Dementia in other diseases classified elsewhere, unspecified severity, without behavioral disturbance, psychotic disturbance, mood disturbance, and anxiety; G47.00 Insomnia, unspecified; N39.0 Urinary tract infection, site not specified; L98.9 Disorder of the skin and subcutaneous tissue, unspecified; I83.028 Varicose veins of left lower extremity with ulcer other part of lower leg; L97.829 Non-pressure chronic ulcer of other part of left lower leg with unspecified severity; R60.0 Localized edema; R53.81 Other malaise; D75.81 Myelofibrosis; D58.9 Hereditary hemolytic anemia, unspecified; D69.6 Thrombocytopenia, unspecified; Z66 Do not resuscitate
CPT/HCPCS: 99350

== ENCOUNTER 2020-04-06 19:00 | Outpatient (CLI) | payer MEDICARE ==
[2020-04-07 17:09] LABS: BILIRUBIN,URINE NEGATIVE (NEGATIVE); GLUCOSE, URINE (UA) NEGATIVE (NEGATIVE); KETONES,URINE (UA) NEGATIVE (NEGATIVE); LEUKOCYTE ESTERASE, URINE MODERATE (NEGATIVE); NITRITE,URINE NEGATIVE (NEGATIVE); OCCULT BLOOD,URINE NEGATIVE (NEGATIVE); PROTEIN,URINE TRACE mg/dL (NEGATIVE); UROBILINOGEN,URINE 0.2 (NORMAL) E.U./dL (NORMAL)
[2020-04-07 17:22] LABS: CLARITY,URINE CLOUDY (CLEAR)
[2020-04-07 17:43] LABS: BACTERIA,URINE Many /HPF (None Seen); RBC,URINE 0-5 /HPF (0-5); SQUAMOUS EPITHELIAL CELL,UR MOD Squamous (<= Few)
== END 2020-04-06 23:59 | disposition home or self-care (01) ==
LOC: LAB.R 19:00
PROVIDERS: ATTEND Nurse Practitioner Adult Health
DX: R30.0 Dysuria (principal)
CPT/HCPCS: 81001; 87086

== ENCOUNTER 2020-04-14 15:15 | Outpatient (CLI) | payer MEDICARE ==
--- NOTE | 2020-04-14 17:43 | CONSULTATION NOTE ---
Palliative Care Follow Up - Referral Referring Provider: Dr. Anjelica Draper Time of Visit: 7187-6482 Referral setting: Home Referral Reason: Myelofibrosis/Dementia/Generalized Weakness - Information Sources Records reviewed: Previous records reviewed History/Review of Systems obtained from: Patient, Family (daughter Sejal and son Ruel present) Exam limitations: Clinical condition (patient with STM deficits; defers to daughter austin for ROS) - History of Present Illness Update Brief HPI Update: This is an 85-year-old woman who has longstanding history of primary myelofibrosis, concurrent warm autoimmune hemolytic anemia, and thrombocytopenia. She is currently on luspatercept, every 3 weeks, she is due for labs and injection this Sunday. She continues to do well on it with decreased transfusion needs and not needed a transfusion since 01/15. Previous to this she been averaging transfusions about every 3 weeks, has known iron overload and currently on deferasirox. She continues to be quite frail, does present with generalized weakness, and has had some decrease in activity tolerance and energy over the week. Patient did have an extended stay of hospitalization at [facility], for concern of stroke versus seizures. She has been recently titrated off Keppra, with no evidence of seizure activity, her cognitive status has improved, though has not returned to baseline. She is clear, sleeping less during the day, still continues with shuffling gait and some festinating. She has improved from baseli ne of discharge, but still is limited both by her lower extremity weakness, and confidence regarding this. She does still have some short-term memory issues, defers to daughter, and does have difficulty with word finding, she tends to stop and start the conversation. She does not seem other than frustrated at times, to have significant insight nor distressed with this. The other concern is patient has known consistent recurrent UTIs, this has been challenging to manage given she has been on continuous antibiotics for last 3 months. She was last treated for a temp of 102.8, no chills but mild confusion and discomfort. Her daughter called her the end of last week, as patient had some decrease in energy, concern for foul-smelling urine, and possible increase in mild confusion. Urine sample was contaminated, did order Cipro with instructions only to start with increased severity of symptoms. If not needed as a started so far, at this point in time she does not present with any acute s igns or symptoms, she is afebrile, vital signs are stable, she did not progress with symptoms, urine cleared up with pushing of fluids, will continue to monitor. Patient is also receiving services from home health RN, patient does have a venous stasis ulcer, triggered by trauma. Patient has poor peripheral circulation, has been slow healing, but this point in time does not show any signs or symptoms of infection. Past Medical History: Hypertension, hypercholesteremia, carotid arterial stenosis right, migraines, IBS, lymphocytic colitis, incontinence, macular degeneration, chronic hearing loss, depression, osteoarthritis, history of basal cell skin of lower extremities, myelofibrosis since 2015 transfusion dependent with antibodies, new diagnosis of late onset Alzheimer's, seizure disorder Social History - Living Situation Living arrangement: At home Living Situation: With spouse/s.o., With family Support System: Patient and her have been living with her daughter Sejal since moving them in from the beginning the pandemic in July. They have been previously living in assisted living for about 3 years. Her is quite frail and very hard of hearing. They have hired a caregiver, but are looking at alternative living situations given the limited access by her other children. Patient has 4 children total, Ruel is the DPOA, and transports and takes them to medical appointments. Medications/Allergies - Medications Home Medications: Ambulatory Orders Medication Instructions Recorded Confirmed Deferasirox 180 mg PO DAILY 01/03/20 04/15/20 Sertraline HCl 50 mg PO DAILY 01/03/20 04/15/20 predniSONE [Prednisone] 10 mg PO DAILY 01/03/20 04/15/20 Donepezil [Aricept] 10 mg PO DAILY 02/24/20 04/15/20 Losartan Potassium 25 mg PO DAILY 02/24/20 04/15/20 Luspatercept-Aamt [Reblozyl] 75 mg SUBQ .Q3 WEEKS 02/24/20 04/15/20 Vit A/Vit C/Vit E/Zinc/Copper 1 tab PO DAILY 02/24/20 04/15/20 [Preservision Areds Softgel] Cholecalciferol (Vitamin D3) 2,000 units PO DAILY 03/11/20 04/15/20 [Vitamin D3] Magnesium 250 mg PO DAILY 03/11/20 04/15/20 Melatonin/Pyridoxine [Melatonin 5 5 mg PO QPM 03/23/20 04/15/20 mg Tablet] Lactobacillus Acidophilus 1 cap PO DAILY 04/15/20 04/15/20 [Probiotic Acidophilus] Loperamide [Imodium] 2 mg PO QPM PRN 04/15/20 04/15/20 - Allergies Allergies/Adverse Reactions: Allergies Allergy/AdvReac Type Severity Reaction Status Date / Time No Known Drug Allergies Allergy Verified 01/02/20 13:49 Review of Systems - Constitutional Constitutional: reports: Fatigue (worsening), Weakness, Weight stable. denies: Fever (spiked temp 102.8 03/19; afebrile since starting AB), Chills - Eyes Eyes: reports: Vision loss (macular degeneration) - Ears, Nose & Throat Ears, Nose & Throat: reports: Hearing loss, Hearing aids - Cardiovascular Cardiovascular: reports: Edema, Exertional dyspnea, Decr. exercise tolerance - Respiratory Respiratory: reports: SOB with exertion. denies: Cough, Wheezing, SOB at rest - Gastrointestinal Gastrointestinal: reports: Diarrhea (intermittent), Good appetite. denies: Nausea, Reflux/heartburn - Genitourinary Genitourinary: reports: Incontinence. denies: Dysuria - Musculoskeletal Musculoskeletal: reports: Muscle aches, Stiffness, Limited range of motion, Muscle weakness, Assistive devices (using walker; very slow; needing cueing; ataxic gain), Transfer issues (needing some assistance get from sitting to standing) - Integumentary Integumentary: reports: Dryness - Neurological Neurological: reports: General weakness, Memory problems (improved from hospitalization; STM and word finding), Other (word finding issues; slow to respond; processing problematic) - Psychiatric Psychiatric: reports: Depression, Anxiety - Hematologic/Lymphatic Hematologic/Lymph: Anemia (02/18 8.8), Recurrent infections (hx of UTIs currently being treated) - All Other Systems All Other Systems: reports: Other (limited given STM deficits) Physical Exam - Vital Signs Temperature: 96.9 C Pulse Rate: 85 Respiratory Rate: 16 O2 Saturation: 98 (ra @ rest) Blood Pressure: 122/78 - Physical Exam General Appearance: positive: No acute distress, Alert, Anxious Eyes Bilateral: positive: Normal inspection ENT: positive: No signs of dehydration Neck: positive: Trachea midline Cardiovascular: positive: Regular rate & rhythm Respiratory: positive: No respiratory distress, Breath sounds nml. negative: Wheezes, Rales, Rhonchi Abdomen: positive: Non-tender, Soft Skin: positive: Pallor, Dryness, Bruising, Wound (dressing intact under tubigrips) Extremities: positive: Pedal edema (improved with use of tubigrips) Neurologic/Psychiatric: positive: Mood/affect nml, Disoriented to time, Weakness, Flat affect Palliative Care - POLST Patient has POLST: Yes POLST Status: DNR, Selective Treatment Pain: No pain Tiredness/Fatigue: Moderate (4-6) Drowsiness/Sedation: Mild (1-3) Nausea: None Anorexia: None Dyspnea: Mild (1-3) Depression: Mild (1-3) Anxiety: Moderate (4-6) Feelings of wellbeing/Perceived Quality of Life: Good, Acceptable, Improved Sleep: Variable sleep pattern Constipation: No Performance Status: Patient still needs cueing, assistance with ambulation, assistance from sitting to standing. She has caregivers, but help provide assistance with toileting, bathing, and meal prep. Patient is able to feed herself. She is limited both by a lower extremity weakness, and dyspnea. She is able to ambulate before tiring about 25 feet, then legs become weak. She does use a rolling front wheeled walker, has difficulty with shuffling gait. - Palliative Care Discussion: Family meeting provided with Sejal daughter, son Ruel present, did given the pandemic Zoom in daughter Maricel, and son Keegan. Opportunity for them to talk about goals for their mom, reviewed patient's fragile status, expected ongoing slow decline related to her multiple comorbidities, with the hope for improvement in quality of life, though recognizing limited quantity of life. Reviewed also though patient has high risk issues particularly risk of infection, that may lead to an acute change in status and/or if no longer responding to her myelofibrosis treatment. Answered questions as best could given the context of her comorbidities and anticipated changes, reviewed goals for their mom, focus on comfort, avoid acute hospitalization, treat reversible conditions if going to lead to quality of life. In agreement when decline occurs, transition to hospice support. Discussed concerns regarding caregiver fatigue, possible alternative settings to meet patient and 's needs, as well as how best to support them in their current status, recognizing their advanced age and fragility. Counseling provided regarding the role of palli ative care is more limited services versus hospice more robust. We will continue to provide support and updates and anticipatory guidance as possible. Impression and Recommendations - Palliative Care Impression: This is a fragile 85-year-old woman with multiple comorbidities, adding to her frailty is her longstanding primary myelofibrosis, new diagnosis of late onset Alzheimer's, and recurrent UTIs. She is currently being treated for through home health nursing, for a lower extremity stasis wound, which is slowly healing without any signs or symptoms of infection. Patient has had slow and ongoing functional decline over this year, as well as more recently cognitive decline exacerbated by recent hospitalization. She has benefited and improved after discontinuing the Keppra, but remains with deficits. Palliative care to provide support for symptom management, coordination of care, as well as anticipatory guidance. Recommendations/Counseling Done: 1. Late onset Alzheimer's dementia, without behavioral disturbances. Patient is currently on donepezil 10 mg. She has been discontinued off Keppra with improvement of sedation and improve cognitive status. She still presents with deficits, but knows the symptoms of seizure activity. She does fluctuate, but is engaged and able to participate in visit today. 2. Recurrent UTIs. Patient continues to be at high risk, at this point time does not show any acute symptoms of UTI. We will continue to monitor closely, as patient has been almost continuous antibiotics. Did recommend probiotic daily for bowel support. She denies any further vaginal discomfort. She denies any discomfort with her labial ulcer. 3. Venous stasis ulcer left lower extremity. Patient is being supervised and wound care provided through home health nursing. Evaluated photos, no signs or symptoms of infection, slow to heal. They are using Tubigrip's on lower extremity edema with some mild improvement. Suspect lower extremity edema multifactorial. 4. Deconditioning. Counseling provided regarding encouraged more engagement in progressive ambulation program, patient is not interested in exercises, but most likely would benefit from more frequent intentional walking program. Unfortunately this needs to be balanced with patient's fluctuating fatigue. 5. Diarrhea. This is been longstanding, patient does have a history of IBS and lymphocytic colitis, does not present with any signs or symptoms of C. difficile, though did review symptoms with family given long history of antibiotics. They are managing with 1 Imodium at bedtime, will continue. 6. Advanced care planning. Patient's DURABLE POWER OF HIGH SCALER is Ruel Beltran [phone]. Patient does have a POLST with DN AR/DNI and selective treatments, patient does have 4 children. Did provide family conference and counseling regarding anticipatory guidance, goals for mother as well as father, as well as considering other alternative living situations. Questions were answered, and guidance provided. Time Spent: 75 minutes with greater than 50% of this done in counseling regarding symptom management, patient support issues, and anticipatory guidance in the context of family meeting.
== END 2020-04-14 15:16 | disposition home or self-care (01) ==
LOC: PC 15:15
PROVIDERS: ATTEND Nurse Practitioner Adult Health
DX: Z51.5 Encounter for palliative care (principal); G30.1 Alzheimer's disease with late onset; F02.80 Dementia in other diseases classified elsewhere, unspecified severity, without behavioral disturbance, psychotic disturbance, mood disturbance, and anxiety; I83.029 Varicose veins of left lower extremity with ulcer of unspecified site; L97.929 Non-pressure chronic ulcer of unspecified part of left lower leg with unspecified severity; R54 Age-related physical debility; R19.7 Diarrhea, unspecified; D47.1 Chronic myeloproliferative disease; D59.11 Warm autoimmune hemolytic anemia; D69.6 Thrombocytopenia, unspecified; G40.909 Epilepsy, unspecified, not intractable, without status epilepticus; I10 Essential (primary) hypertension; Z79.899 Other long term (current) drug therapy; Z66 Do not resuscitate
CPT/HCPCS: 99350

== ENCOUNTER 2020-05-12 07:00 | Outpatient (CLI) | payer MEDICARE | END 2020-05-12 23:59 | disposition home or self-care (01) | LOC: LAB.R 07:00 | PROVIDERS: ATTEND Nurse Practitioner Adult Health | DX: N39.0 Urinary tract infection, site not specified (principal) | CPT/HCPCS: 87086 ==

== ENCOUNTER 2020-05-14 15:15 | Outpatient (CLI) | payer MEDICARE ==
--- NOTE | 2020-05-14 18:24 | CONSULTATION NOTE ---
Palliative Care Follow Up - Referral Referring Provider: Dr. Anjelica Draper Time of Visit: [id number] Referral setting: Home Referral Reason: UTI/MDS/Dementia - Information Sources Records reviewed: Previous records reviewed History/Review of Systems obtained from: Patient, Family (daughter Sejal) Exam limitations: Clinical condition (patient remains with STM issues and word finding) - History of Present Illness Update Brief HPI Update: This this is an 85-year-old woman who has longstanding history of primary myelo fibrosis, concurrent warm autoimmune hemolytic anemia, and thrombocytopenia. She is currently on luspatercept, She receives this every 3 weeks and continues to do well with a hemoglobin 8.5. She has not needed transfusion since 01/15. Previous to this she been averaging transfusions about every 3 weeks, she does have known iron overload and is currently on the deferasirox. She continues to be quite frail, I was contacted by the home health nurse earlier in the week, concerned about patient having UTI. She was having fluctuating levels of alertness, some functional decline, and noted "pink urine". Patient is not running a fever, her vital signs were stable, they did obtain a urine. Unfortunately though it showed greater than 100,000 colonies, it did show most likely contaminated and no C & S available. Patient on exam, is pale, her color is sallow. She does have some abdominal tenderness, she does complain of some dysuria, though we do know she does have a lesion on her labia. Her daughter reports her urine remains pink, patient does feel like she is feeling poorly, though she is no fever or chills. We have managed to not treat her since 03/22. Patient certainly could have other reasons for hematuria, but will go ahead and treat at this point in time with Cipro 500 mg twice daily for 7 days. Patient is receiving services from home health, patient does have a venous sta sis ulcer triggered by trauma, she has poor circulation and has been slow in healing and continues to improve. It is almost resolved. Past Medical History: Hypertension, hypercholesteremia, carotid arterial status right, migraines, IBS, lymphocytic colitis, incontinence, macular degeneration, chronic hearing loss, depression, osteoarthritis, history of basal cell skin of lower extremities, myelofibrosis since 2015 transfusion dependent with antibodies, new diagnosis of late onset Alzheimer's, seizure disorder. Social History - Living Situation Living arrangement: At home Living Situation: With spouse/s.o., With family Support System: Patient and her have been living with her daughter Sejal since moving them from assisted living because of the pandemic in July. Her is quite frail and very hard of hearing, they have hired caregivers but are considering alternative living situations given the limited access by other children. They did have a young holiday, all family quarantine for 2 weeks and were all able to be together. Both patient and daughter reflect on what a wonderful memory creating time this was for them all. Patient has 4 children total, Ruel is the DPOA, and transports and takes them to medical appointments. Sejal though has been most intimately involved in their day-to-day care Medications/Allergies - Medications Home Medications: Ambulatory Orders Medication Instructions Recorded Confirmed Deferasirox 180 mg PO DAILY 01/03/20 05/14/20 Sertraline HCl 50 mg PO DAILY 01/03/20 05/14/20 predniSONE [Prednisone] 10 mg PO DAILY 01/03/20 05/14/20 Donepezil [Aricept] 10 mg PO DAILY 02/24/20 05/14/20 Losartan Potassium 25 mg PO DAILY 02/24/20 05/14/20 Luspatercept-Aamt [Reblozyl] 75 mg SUBQ .Q3 WEEKS 02/24/20 05/14/20 Vit A/Vit C/Vit E/Zinc/Copper 1 tab PO DAILY 02/24/20 05/14/20 [Preservision Areds Softgel] Cholecalciferol (Vitamin D3) 2,000 units PO DAILY 03/11/20 05/14/20 [Vitamin D3] Magnesium 250 mg PO DAILY 03/11/20 05/14/20 Melatonin/Pyridoxine [Melatonin 5 5 mg PO QPM 03/23/20 05/14/20 mg Tablet] Lactobacillus Acidophilus 1 cap PO DAILY 04/15/20 05/14/20 [Probiotic Acidophilus] Loperamide [Imodium] 2 mg PO QPM PRN 04/15/20 05/14/20 Ciprofloxacin [Cipro] 500 mg PO BID MDD 7 days 05/14/20 05/14/20 - Allergies Allergies/Adverse Reactions: Allergies Allergy/AdvReac Type Severity Reaction Status Date / Time No Known Drug Allergies Allergy Verified 01/02/20 13:49 Review of Systems - Constitutional Constitutional: reports: Fatigue (worsening;), Weakness, Weight loss (110 loss of about 5 pounds since hospitalization; large wt. loss as result of h ospitalization). denies: Fever (spiked temp 102.8 03/19; afebrile since starting AB), Chills - Eyes Eyes: reports: Vision loss (macular degeneration) - Ears, Nose & Throat Ears, Nose & Throat: reports: Hearing loss, Hearing aids, Dry mouth - Cardiovascular Cardiovascular: reports: Edema, Decr. exercise tolerance. denies: Chest pain - Respiratory Respiratory: reports: SOB with exertion (note with conversation as well). denies: Cough, Wheezing, SOB at rest - Gastrointestinal Gastrointestinal: reports: Diarrhea (intermittent), Good appetite. denies: Nausea, Reflux/heartburn - Genitourinary Genitourinary: reports: Hematuria (light pink per report), Incontinence. denies: Dysuria - Musculoskeletal Musculoskeletal: reports: Muscle aches, Stiffness, Limited range of motion, Muscle weakness, Assistive devices (using walker; very slow; needing cueing; ataxic gain), Transfer issues (needing some assistance get from sitting to standing) - Integumentary Integumentary: reports: Dryness, Other (wounds almost resolved) - Neurological Neurological: reports: General weakness, Memory problems (improved from hospitalization; STM and word finding), Other (word finding issues; slow to respond; processing problematic) - Psychiatric Psychiatric: reports: Anxiety. denies: Depression - Hematologic/Lymphatic Hematologic/Lymph: Anemia (02/18 8.8), Recurrent infections (hx of UTIs; will start tx today) - All Other Systems All Other Systems: reports: Other (limited given STM deficits) Physical Exam - Vital Signs Temperature: 96.6 C Pulse Rate: 85 Respiratory Rate: 18 (22 with conversation) O2 Saturation: 99 (ra @ rest) Blood Pressure: 112/78 - Physical Exam General Appearance: positive: No acute distress, Alert, Cachetic Eyes Bilateral: positive: Normal inspection, Other (slightly reddened; appears to be dry eyes) ENT: positive: No signs of dehydration Neck: positive: Trachea midline Cardiovascular: positive: Regular rate & rhythm Respiratory: positive: No respiratory distress, Breath sounds nml. negative: Wheezes, Rales, Rhonchi Abdomen: positive: Soft, Tenderness (with palpation over lower abdomen) Skin: positive: Pallor, Dryness, Bruising, Wound (dressing intact under tubigrips) Extremities: positive: Pedal edema (improved with use of tubigrips) Neurologic/Psychiatric: positive: Mood/affect nml, Disoriented to time, Weakness, Flat affect Palliative Care - POLST Patient has POLST: Yes POLST Status: DNR, Selective Treatment Pain: No pain Tiredness/Fatigue: Moderate (4-6) Drowsiness/Sedation: Moderate (4-6) (flucutates) Nausea: None Anorexia: None Dyspnea: Moderate (4-6) Depression: None Anxiety: Mild (1-3) Feelings of wellbeing/Perceived Quality of Life: Good, Acceptable, No change Sleep: Sleep improved, Variable sleep pattern (sometimes restless; diarrhea interfers) Performance Status: Patient caregivers are working with patient on progressive ambulation. She has been doing fairly well, up to this last week, has had some functional decline, with still some hesitancy with gait, needing more cueing. Patient actually arches back some when getting from sitting to standing, does have trouble with balance. She is dependent for toileting, bathing, and needs contact assist for ambulation. She can self feed. She is quite sedentary, does spend much of the time watching TV and visiting with family - Palliative Care Discussion: Patient is quite content and feels very grateful to be at daughters, reports she has nothing to worry about given the level that her family is providing. She had no questions, she does admit to feeling somewhat poorly, but also attributes many of the things she is experiencing to her age. She does perceive her quality of life is quite good right now, though certainly with limitations. Spoke with Sejal, she does exhibit some symptoms of caregiver fatigue. She is seen her mother is frail, does understand there are fewer things to be fixed, most things are to be managed and focus on weighing benefits and burdens of different interventions and trying to just take day by day. Had a young Tray, this is quite encouraging for her. She does understand her mother is on borrowed time, will continue to follow with palliative approach. Impression and Recommendations - Palliative Care Impression: This is a fragile 85-year-old woman with multiple comorbidities, adding to her frailty is her longstanding primary myelofibrosis, new diagnosis of late onset Alzheimer's, and recurrent UTIs. Her lower extremity stasis wound is healing, she has been treated through home health nursing, most likely will be discharged in the near future. Patient has had slow and ongoing functional decline over this year, but does fluctuate, today patient does present with symptoms concerning for UTI. Palliative care to provide support for symptom management coordination of care as well as anticipatory guidance Recommendations/Counseling Done: 1. UTI. Patient presents with symptoms of UTI, though unfortunately unable to get a [employer] WORK[employer]. We will go ahead and treat with Cipro 500 mg twice daily as has responded to this before, counseling provided regarding benefits and burdens of treatment in the context of patient's current symptoms and concern for antibiotic resistance. Patient does present with hematuria, will monitor if improves. 2. Venous stasis ulcer left lower extremity. Patient is supervised wound care provided through home health nursing, wound almost completely healed. Will be discharged at that point in time. They are using Tubigrip's on lower extremity edema with good control compared to baseline. Suspect lower extremity edema multifactorial. 3. Deconditioning. Patient continues to fluctuate as far as functional status, they are doing an intentional walking program. Counseled to line up with patient's fatigue/energy level, patient does have good and bad days, instructed to take advantage of good days and not to push patient beyond her fatigue on days she is not feeling as well. 4. Diarrhea this has been longstanding, patient does have a history of IBS and lymphocytic colitis, does not present with any symptoms of C. difficile. They are managing with intermittent Imodium, I am wondering with decreased transfusions, patient may be able to stop her Deferasirox. Will reach out and get oncology note, and inquire if looks appropriate. 5. Advanced care planning. Patient's DURABLE POWER OF INSURANCE SALES ASSOCIATE is Ruel Beltran [phone]. Patient does have POLST with DN AR/DNI and selective treatments, patient continues to be quite frail and fragile. Family requesting palliative approach to her care, wanting to avoid ED and hospitalizations. Counseling provided and anticipatory guidance. Time Spent: 60 minutes with greater than 50% of this done in counseling regarding UTI treatment, quality of life issues, and anticipatory guidance.
== END 2020-05-14 15:16 | disposition home or self-care (01) ==
LOC: PC 15:15
PROVIDERS: ATTEND Nurse Practitioner Adult Health
DX: Z51.5 Encounter for palliative care (principal); R30.0 Dysuria; R31.0 Gross hematuria; I83.028 Varicose veins of left lower extremity with ulcer other part of lower leg; L97.829 Non-pressure chronic ulcer of other part of left lower leg with unspecified severity; R53.81 Other malaise; R19.7 Diarrhea, unspecified; D47.1 Chronic myeloproliferative disease; D59.10 Autoimmune hemolytic anemia, unspecified; D69.6 Thrombocytopenia, unspecified; Z79.899 Other long term (current) drug therapy; G30.1 Alzheimer's disease with late onset; F02.80 Dementia in other diseases classified elsewhere, unspecified severity, without behavioral disturbance, psychotic disturbance, mood disturbance, and anxiety; Z66 Do not resuscitate
CPT/HCPCS: 99350

== ENCOUNTER 2020-06-10 14:15 | Outpatient (CLI) | payer MEDICARE ==
--- NOTE | 2020-06-10 17:02 | CONSULTATION NOTE ---
Palliative Care Follow Up - Referral Referring Provider: Dr. Anjelica Drpaer Time of Visit: [id number] Referral setting: Home Referral Reason: AMS/Presumed UTI/MDS/FTT - Information Sources Records reviewed: Previous records reviewed History/Review of Systems obtained from: Patient, Family (son Ruel and daughter Sejal present) Exam limitations: Clinical condition (patient with mild confusion/STM deficits at baseline) - History of Present Illness Update Brief HPI Update: This is a very fragile 85-year-old woman who has longstanding history of primary myelofibrosis, concurrent warm autoimmune hemolytic anemia, and thrombocytopenia. She is currently on this luspatercept, which she receives every 3 weeks. Her latest hemoglobin had drifted down to 8.0, she has not needed a transfusion since 01/16/20 compared to every 3 weeks average previously. Patient has had intermittent UTIs, last treated beginning of May, unfortunately never able to get a good urine to treat maximally. She does appear to respond most frequently to Cipro, she also presented a couple days ago with altered mental status, declining functional status, poor appetite, and foul-smelling urine. After much discussion, decided to treat prophylactically, patient has improved over the last 24 hours, though does remain quite frail. Patient on exam is pale, her color is sallow, she does have a lesion on her labia, so often hard to tell if patient having dysuria or just discomfort. Patient had been relocated to her sons for a couple weeks, where they were heavy floor replaced. Unfortunately she had a fall during that time, on 05/23 and hit nightstand and broke ribs 7-10, with bruising and pain. She reports this is continue to improve, does have a known displaced fracture of her anterior right ninth rib. She also unfortunately had a skin tear, though on examination on her left arm, is healing and closed without any signs or symptoms. She also sustained a hematoma of her left lower leg, which has since drained, still has an open moist area of about 2 cm oval very shallow. They had prescribed calmoseptine ointment, she had been using Cavilon barrier cream with good success. Unfortunately has made it more difficult as very thick and sticky, and unclear if that is causing more problems. Family very aware patient is quite frail, continue to weigh benefits and burdens of treatment decisions and interactions in the context of quality of life. Palliative care here for follow-up on identified issues from earlier in the month. Past Medical History: Hypertension, hypercholesteremia, carotid artery stenosis on right, migraines, IBS, history of lymphocytic colitis, incontinence, macular degeneration, chronic hearing loss, depression, psoriasis, history of basal cell cancer of lower extremity, myelofibrosis since 2015 with transfusion dependence with known antibodies, new diagnosis of late onset Alzheimer's, seizure disorder. Social History - Living Situation Living arrangement: At home Living Situation: With spouse/s.o., With family Support System: Patient is staying with her son and over in [facility] floor is getting changed out. They are settling back in, has had to some of the confusion, as well as falls. They do have paid caregiving, patient and has been required 24/ supervision. Her is quite frail and very hard of hearing as well, they have been living with their daughter since the pandemic. Patient does have 4 children, Ruel is the DPOA, and provides transportation takes them to medical appointments. Sejal has been most intimately involved in their day-to-day hands-on care. Medications/Allergies - Medications Home Medications: Ambulatory Orders Medication Instructions Recorded Confirmed Deferasirox 180 mg PO DAILY 01/03/20 06/10/20 Sertraline HCl 50 mg PO DAILY 01/03/20 06/10/20 predniSONE [Prednisone] 10 mg PO DAILY 01/03/20 06/10/20 Donepezil [Aricept] 10 mg PO DAILY 02/24/20 06/10/20 Losartan Potassium 25 mg PO DAILY 02/24/20 06/10/20 Luspatercept-Aamt [Reblozyl] 75 mg SUBQ .Q3 WEEKS 02/24/20 05/14/20 Vit A/Vit C/Vit E/Zinc/Copper 1 tab PO DAILY 02/24/20 06/10/20 [Preservision Areds Softgel] Cholecalciferol (Vitamin D3) 2,000 units PO DAILY 03/11/20 06/10/20 [Vitamin D3] Magnesium 250 mg PO DAILY 03/11/20 06/10/20 Melatonin/Pyridoxine [Melatonin 5 5 mg PO QPM 03/23/20 06/10/20 mg Tablet] Loperamide [Imodium] 2 mg PO QPM PRN 12/10/20 02/04/21 Ciprofloxacin [Cipro] 500 mg PO BID MDD 7 days 05/14/20 06/10/20 - Allergies Allergies/Adverse Reactions: Allergies Allergy/AdvReac Type Severity Reaction Status Date / Time No Known Drug Allergies Allergy Verified 01/02/20 13:49 Review of Systems - Constitutional Constitutional: reports: Fatigue (severe over last few days; energy best in AM), Weakness (was ambulatory this am), Weight loss - Eyes Eyes: reports: Vision loss (macular degeneration) - Ears, Nose & Throat Ears, Nose & Throat: reports: Hearing loss, Hearing aids, Dry mouth - Cardiovascular Cardiovascular: reports: Decr. exercise tolerance. denies: Chest pain - Respiratory Respiratory: reports: SOB with exertion (note with conversation as well). denies: Cough, Wheezing, SOB at rest - Gastrointestinal Gastrointestinal: reports: Diarrhea (intermittent), Good appetite. denies: Nausea, Reflux/heartburn - Genitourinary Genitourinary: reports: Incontinence, Other (malodoruous urnine) - Musculoskeletal Musculoskeletal: reports: Muscle aches, Stiffness, Limited range of motion, Muscle weakness, Assistive devices (using walker; very slow; needing cueing; ataxic gain), Transfer issues (needing assistance get from sitting to standing uses walker when not feeling well or end of day) - Integumentary Integumentary: reports: Dryness, Other (healing skin tear LUE; Hematoma LLE) - Neurological Neurological: reports: General weakness, Memory problems (having slow processing during visit; aware of STM issues and word finding; defers to daughter frequently), Other (word finding issues; slow to respond; processing problematic). denies: Headache, Seizures - Psychiatric Psychiatric: reports: Anxiety (mild) - Hematologic/Lymphatic Hematologic/Lymph: Anemia (8.0), Recurrent infections (hx of UTIs; last tx 05/14, needing tx yesterday) - All Other Systems All Other Systems: reports: Other (limited given STM deficits) Physical Exam - Vital Signs Temperature: 98.3 C Pulse Rate: 56 Respiratory Rate: 18 (20 with conversation) O2 Saturation: 94 (ra @ rest) Blood Pressure: 145/67 - Physical Exam General Appearance: positive: No acute distress, Alert, Cachetic Eyes Bilateral: positive: Normal inspection ENT: positive: No signs of dehydration Neck: positive: Trachea midline Cardiovascular: positive: Regular rate & rhythm Respiratory: positive: Breath sounds nml, Diminished in bases. negative: No respiratory distress (gets breathless wtih activity/talking) Abdomen: positive: Soft, Tenderness (lower abd with palpation) Skin: positive: Pallor (color sallow), Dryness, Bruising, Wound (dried eschar LUE skin tear/no s/s infection; LLE hematoma moist but no s/s infection; oozing some old blood) Extremities: positive: Pedal edema (1-2+ left greater than right; tubigrips on; improved from other visits) Neurologic/Psychiatric: positive: Mood/affect nml, Disoriented to time, Weakness, Flat affect Palliative Care - POLST Patient has POLST: Yes POLST Status: DNR, Selective Treatment Sleep: Variable sleep pattern Performance Status: Patient continues with slow functional decline, more acute over the last 24 to 48 hours. She is ambulatory with a walker but needs cueing, assistance from sitting to standing. She does need assistance with bathing, she can feed herself. She is having increased urinary incontinence, needs assistance with toileting. - Palliative Care Discussion: Ruel and Sejal both present, are recognizing patient's frailty. Continued goals are to focus on quality of life, taking a palliative approach. Patient is nonperplexed, denies she is worried about anything. She does have word finding difficulties, but does not seem in distress just somewhat frustrated at times. POLST with DN AR/DNI and selective treatments and home. Continuing to weigh benefits and burdens of treatment options, are aware of concerns for recurrent UTIs, at this point in time they are hoping to avoid any hospitalization. Particularly given the restrictions with the pandemic and their last experience. Results - Lab Results Lab results reviewed: Yes Impression and Recommendations - Palliative Care Impression: This is a fragile 85-year-old woman with multiple comorbidities, adding to her frailty is her longstanding primary myelofibrosis, recurrent UTIs, and sequela from recent falls including right rib fracture. Patient has continued to have slow and ongoing functional decline over this year, it does fluctuate, but has still been fairly consistently worsening. Palliative care to provide support for symptom management, coordination of care, as well as anticipatory guidance. Recommendations/Counseling Done: 1. Recurrent UTIs. Did trial ciprofloxacin 500 mg twice daily again, had been sensitive back on 02/29/2020, though has received a couple rounds since then but often less than symptoms and patient has tolerated. It was E. coli, suggested to try d-mannose 500 mg twice daily for prevention. They are providing pericare, unfortunately she does have a genital lesion, I suspect that calmoseptine is not helping as that is a thick ointment and can trap bowel incontinence/E. coli. It also shows it is sensitive to nitrofurantoin, tetracycline, and Bactrim. Subsequent urine specimens have had multiple squamous cell or been contaminated. Patient is quite frail and it is difficult short of his straight cath to get a good urine. 2. Hematoma left lower extremity. It is about 2 cm oval, shallow, does appear to be healing and filling in. Wash with wound cleanser, and applied nonstick Telfa dressing. No signs or symptoms of infection, suspect will continue to heal without problems. 3. Left skin tear upper extremity. This appears to be healing well without any difficulty, instructed to leave eschar just to drop off on its own. 4. Fatigue. Suspect this is multifactorial, patient is floating down with her hemoglobin 8.0. Given patient's goals for focus on quality of life, would re commend if all is within range, to transfuse to help improve both functional status, as well as fatigue levels. 5. Advanced care planning. Patient's DURABLE POWER OF LIFE ENRICHMENT DIRECTOR is Ruel Beltran [phone]. Patient does have POLST with DN AR/DNI as selective treatments, patient continues to be quite fragile. Family requesting palliative approach to her care, want to continue to try and avoid ED and hospitalizations. Patient is at high risk for sequela of falls and for follow- up from her infections. Counseling continue to be provided with anticipatory guidance. Time Spent: 45 minutes with greater than 50% of this done in counseling regarding symptom management, management of care issues, anticipatory guidance, continuing weighing benefits and burdens of treatment with recurrent UTIs.
== END 2020-06-10 14:16 | disposition home or self-care (01) ==
LOC: PC 14:15
PROVIDERS: ATTEND Nurse Practitioner Adult Health
DX: Z51.5 Encounter for palliative care (principal); S80.12XD Contusion of left lower leg, subsequent encounter; S41.112D Laceration without foreign body of left upper arm, subsequent encounter; R53.83 Other fatigue; G30.1 Alzheimer's disease with late onset; F02.80 Dementia in other diseases classified elsewhere, unspecified severity, without behavioral disturbance, psychotic disturbance, mood disturbance, and anxiety; N90.89 Other specified noninflammatory disorders of vulva and perineum; Z87.440 Personal history of urinary (tract) infections; Z66 Do not resuscitate
CPT/HCPCS: 99349

== ENCOUNTER 2020-07-07 15:11 | Outpatient (CLI) | payer MEDICARE | END 2020-07-07 15:12 | disposition EMS.NT | LOC: EMS 15:11 | DX: R31.0 Gross hematuria (principal); R10.30 Lower abdominal pain, unspecified ==

== ENCOUNTER 2020-07-21 14:45 | Outpatient (CLI) | payer MEDICARE ==
--- NOTE | 2020-07-21 20:43 | CONSULTATION NOTE ---
Palliative Care Follow Up - Referral Referring Provider: Dr. Anjelica Draper Time of Visit: [id number] Referral setting: Home Referral Reason: FTT/MDS/Acute cystitis with hematuria - Information Sources Records reviewed: Previous records reviewed History/Review of Systems obtained from: Patient, Family (daughter Sejal) Exam limitations: Clinical condition (patient with difficulty with completing questions; delayed; worseing cognitive status) - History of Present Illness Update Brief HPI Update: This is a very fragile 85-year-old who has longstanding history of primary myelofibrosis, concurrent warm autoimmune hemolytic anemia, and thrombocytopenia. She is currently on luspateracept, which she receives every 3 weeks. Her hemoglobin is drifting down, last one documented on 07/07 was 7.8. Patient presented on 07/07 with acute hematuria, did receive a CT scan that showed concern for a urethral lesion, and after examination with urologist thought most likely to be a benign cyst. Even if not, patient is not a candidate for any kind of surgical piece. She did receive a cystoscopy, did show chronic inflammation, her urine showed colonization, but no acute infection. Given her discomfort and inflammation, they are treating her with Cipro 500 mg for 1 week. They have not started this yet. Patient does have most of her discomfort with urinating. She denies any tenderness or discomfort sitting at this point in time. She was last treated with Cipro in June for systemic symptoms with improvement. Patient appears quite pale, slow to engage, having difficulty with word finding. Daughter does report increased behaviors around , up frequently at night. Neurology has started her on some doxepin, they have been doing 2 mg at night, it helped for about 2 nights, and now she is still up at least 2-3 times. This does create more caregiver fatigue. Patient denies any distress, she does have fluctuating abilities as far as ambulation, energy, and able to engage in conversation. Social History - Living Situation Living arrangement: At home Living Situation: With spouse/s.o., With family Support System: Patient and her are in currently her daughter Sejal's home. She moved them in at the time of the pandemic, and has been caring for them through this last year. They do have caregiving support now, and have recently increased hours to assist with a couple evenings. As patient's needs particularly physical needs have increased, this is stretching is what is possible in his current setting. They are exploring other settings at this point in time. Daughter feels badly, but this will also give other siblings access to her parents. Medications/Allergies - Medications Home Medications: Ambulatory Orders Medication Instructions Recorded Confirmed Deferasirox 180 mg PO DAILY 01/03/20 07/21/20 Sertraline HCl 50 mg PO DAILY 01/03/20 07/21/20 predniSONE [Prednisone] 5 mg PO DAILY 01/03/20 07/21/20 Losartan Potassium 25 mg PO DAILY 02/24/20 07/21/20 Luspatercept-Aamt [Reblozyl] 75 mg SUBQ .Q3 WEEKS 02/24/20 07/21/20 Vit A/Vit C/Vit E/Zinc/Copper 1 tab PO DAILY 02/24/20 07/21/20 [Preservision Areds Softgel] Cholecalciferol (Vitamin D3) 2,000 units PO DAILY 03/11/20 07/21/20 [Vitamin D3] Magnesium 400 mg PO DAILY 03/11/20 07/21/20 Melatonin/Pyridoxine [Melatonin 5 5 mg PO QPM 03/23/20 07/21/20 mg Tablet] Loperamide [Imodium] 2 mg PO QPM PRN 04/15/20 07/21/20 Ciprofloxacin [Cipro] 500 mg PO BID MDD 7 days 05/14/20 07/21/20 D-Mannose [Mannxtra] 500 mg PO BID 07/21/20 07/21/20 Doxepin Oral Soln [SINEquan ORAL 4 mg PO QPM 07/21/20 07/21/20 SOLN] - Allergies Allergies/Adverse Reactions: Allergies Allergy/AdvReac Type Severity Reaction Status Date / Time Sulfa (Sulfonamide Allergy Unknown Verified 07/21/20 20:56 Antibiotics) morphine AdvReac Hallucinati Verified 07/21/20 20:56 ons nitrofurantoin AdvReac Unknown Verified 07/21/20 20:55 [From Macrobid] Review of Systems - Constitutional Constitutional: reports: Fatigue (worsening), Weakness (fluctuates), Weight loss - Eyes Eyes: reports: Vision loss (macular degeneration) - Ears, Nose & Throat Ears, Nose & Throat: reports: Hearing loss, Hearing aids, Dry mouth - Cardiovascular Cardiovascular: reports: Decr. exercise tolerance. denies: Chest pain - Respiratory Respiratory: reports: SOB with exertion (note with conversation as well). denies: Cough, Wheezing, SOB at rest - Gastrointestinal Gastrointestinal: reports: Diarrhea (intermittent), Good appetite. denies: Nausea, Reflux/heartburn - Genitourinary Genitourinary: reports: Dysuria, Incontinence - Musculoskeletal Musculoskeletal: reports: Muscle aches, Stiffness, Limited range of motion, Muscle weakness, Assistive devices (using walker; very slow; needing cueing; ataxic gain), Transfer issues (needing assistance get from sitting to standing uses walker when not feeling well or end of day) - Integumentary Integumentary: reports: Dryness - Neurological Neurological: reports: General weakness, Memory problems (having slow processing during visit; aware of STM issues and word finding; defers to daughter frequently; seems worse than last visit), Other (word finding issues; slow to respond; processing problematic). denies: Headache, Seizures - Psychiatric Psychiatric: reports: Anxiety (mild) - Hematologic/Lymphatic Hematologic/Lymph: reports: Anemia (87.8 3/3), Recurrent infections (hx of UTIs; being treated again; follow up with urologist; Cipro; last tx 06/10) - All Other Systems All Other Systems: reports: Other (limited given STM deficits) Physical Exam - Vital Signs Temperature: 97.5 C Pulse Rate: 86 Respiratory Rate: 18 O2 Saturation: 100 (ra @ rest) Blood Pressure: 112/62 - Physical Exam General Appearance: positive: No acute distress, Alert, Cachetic Eyes Bilateral: positive: Normal inspection ENT: positive: No signs of dehydration Neck: positive: Trachea midline Cardiovascular: positive: Regular rate & rhythm Respiratory: positive: Breath sounds nml, Diminished in bases. negative: No respiratory distress (gets breathless wtih activity/talking) Abdomen: positive: Soft, Tenderness (lower abd with palpation) Skin: positive: Pallor (color sallow), Dryness, Bruising Extremities: positive: Pedal edema (1-2+ left greater than right; tubigrips on; improved from other visits) Neurologic/Psychiatric: positive: Mood/affect nml, Disoriented to time, Weakness, Flat affect Palliative Care - POLST Patient has POLST: Yes POLST Status: DNR, Selective Treatment Pain: Pain unchanged, Location (with voiding) Tiredness/Fatigue: Severe (7-10) Drowsiness/Sedation: Mild (1-3) Nausea: None Anorexia: None Dyspnea: Mild (1-3) Depression: Moderate (4-6) Anxiety: Mild (1-3) Feelings of wellbeing/Perceived Quality of Life: Fair, Worsening Sleep: Variable sleep pattern, Other (Patient is up several times a night, with more confusion and hallucinations. Does demonstrate sundowning behaviors.Though daughter notes that it is nice when she has moments of clarity, these often happen in the middle the night.) Constipation: No Performance Status: Patient is encouraged to walk, she can walk about 20 feet with cueing. She is needing more direction, sometimes physically needs her feet to be moved. Daughter feels like it is her brain talking to her feet most of the time that gets her tripped up. Patient has had no falls, she receives full support for her pericare as well as bathing. She is able to feed herself. But caregivers and daughter are providing more care with her decline - Palliative Care Discussion: care patient very much struggling today to get her words out or answer questions. Long delays in replies. When asked what she worries about most, she is worried about being a burden on her daughter. She is quite happy to be there, but does recognize it is difficult. Spoke with daughter, with patient's caregiving needs increasing, they are looking at placement options. We discussed the continuum of care in the context of patient most likely would fit well in a memory care unit, with better supe rvision and staff ratios. Encouraged to screen about hospice support in the facilities, Sejal does feel it would be helpful for other siblings to have access to her parents, she is currently the only one able to see. Encouraged to watch the Governors declarations on Department of Health website, as things are starting to lighten up for assisted living and SNF, though corporate rules may still overide Impression and Recommendations - Palliative Care Impression: This is a fragile 85-year-old woman with multiple comorbidities, and age her frailty is her longstanding primary myelofibrosis, most recently she had an episode of hematuria. She has had a work-up and cystoscopy from urology, only to find a chronic inflammatory process, with negative urine. Though they are going to treat with Cipro 500 mg twice daily to see if it improves. Patient has had slow and ongoing functional decline, her cognitive status continues to decline as well. She presents with significant slowness cognitively today, with difficulty with word finding. She remains at high risk for falls, sequela from her UTIs, and expected trajectory to continue decline. Palliative care providing support regarding symptom management anticipatory guidance Recommendations/Counseling Done: 1. Insomnia. Patient is up at night, adding to both patient and caregiver fatigue. They had started doxepin from neurology, at 2 mg. Dosing is 1-6, encouraged to increase to 4 mg, and evaluate with goal to reach 6 mg to titrate to effectiveness. 2. Acute cystitis with hematuria. Patient has had longstanding chronic recurrent UTIs, has been treated almost monthly. Unfortunately has been treated almost monthly with Cipro, she has been treated again with a new prescription of Cipro 500 mg twice daily. Instructed to add probiotic, patient has had increased confusion in the past on Cipro. Daughter is prepared at this point f or this outcome. 3. Late onset Alzheimer's with behavioral disturbances. Patient with increasing sundowning behaviors, more difficulty with word finding and tracking. Now with increased trouble with ambulation and needing more cueing for tasks. Patient's care needs are starting to outweigh current caregiving situation. Daughter has initiated looking for alternative placement. Did encourage consider memory care unit as an option given both patient and her have cognitive decline. 4. Fatigue. Suspect this is multifactorial, patient's hemoglobin on 07/07 is 7.8. Given patient's functional decline, may benefit if trend continues down for a transfusion. She does see oncology every 3 weeks for injection and monitoring. 5. Advanced care planning. Patient with recent acute encounter with healthcare system, continues to have fewer options. Family is trying to continue with the palliative care approach, daughter Sejal expressing coming to further understanding but this may look like, as patient is continuing to decline and have good and bad days. Patient does have POLST with DN AR/DNI as selective treatments. Patient's DURABLE POWER OF SUPERVISOR SCREEN PRINTING is Ruel Devin her son [phone]. 45 minutes with greater than 50% of this done in counseling regarding ongoing management of recurrent UTIs, declining functional and cognitive status, symptom management, caregiver fatigue, and anticipatory guidance.
== END 2020-07-21 14:46 | disposition home or self-care (01) ==
LOC: PC 14:45
PROVIDERS: ATTEND Nurse Practitioner Adult Health
DX: Z51.5 Encounter for palliative care (principal); G47.00 Insomnia, unspecified; N30.01 Acute cystitis with hematuria; G30.1 Alzheimer's disease with late onset; F02.81 Dementia in other diseases classified elsewhere, unspecified severity, with behavioral disturbance; R53.83 Other fatigue; D47.1 Chronic myeloproliferative disease; D59.11 Warm autoimmune hemolytic anemia; D69.6 Thrombocytopenia, unspecified; Z79.899 Other long term (current) drug therapy; Z66 Do not resuscitate
CPT/HCPCS: 99349

== ENCOUNTER 2020-09-15 14:00 | Outpatient (CLI) | payer MEDICARE ==
--- NOTE | 2020-09-15 17:35 | CONSULTATION NOTE ---
Palliative Care Follow Up - Referral Referring Provider: Dr. Anjelica Draper Time of Visit: 5928-6948 Referral setting: Home Referral Reason: FTT/Dementia/MDS - Information Sources Records reviewed: Previous records reviewed History/Review of Systems obtained from: Patient, Family (daughter Sejal and Newton) Exam limitations: Clinical condition (patient with moderate dementia) - History of Present Illness Update Brief HPI Update: This is a very fragile 85-year-old woman who has longstanding history of primary myelofibrosis, currently on luspateracept, But did require a transfusion this last weekend. This is the first since 01/16/2020. She continues to decline functionally as well as cognitively. She has been diagnosed with late onset Alzheimer's, she does have word finding difficulty, poor short-term memory, and fluctuates as well as far as levels of low alertness. She does have ongoing cystitis type symptoms, with fluctuating pain and discomfort, she had had a cystoscopy showing chronic inflammation but no infection. She has been put on a low acid diet, which has helped some, but still can flare. Patient is only able to take a few steps now, is mostly wheelchair-bound. She is still eating and drinking, has had no recent hospitalizations. She did have a fall today, but without injury. She continues with a large area on her right foot eugene of eschar 4 x 6 cm, without any signs or symptoms of infection. This is a result of a healing hematoma. They are preparing to transition to an alternative living situation, hope is to transition to assisted living, but may stay at [facility] for a couple weeks prior because of a glitch at facility. Past Medical History: Hypertension, hypercholesteremia, stenosis right carotid arterial, migraines, IBS, lymphocytic colitis, incontinence, macular degeneration, chronic hearing loss, depression, osteoarthritis, history of basal cells skin of lower extremities, myelofibrosis since 2014, seizure disorder, chronic UTIs, late onset Alzheimer's. Social History - Living Situation Living arrangement: At home Living Situation: With spouse/s.o., With family Support System: Patient has lived at her daughter's since July 2019 secondary to the pandemic, they do have caregiving support but the majority of care falls to Sejal. eSjal is continue trying to work, as patient and are declining in health, needing more support they have found an alternative setting. Plan is to move on 09/24 though they have run into some difficulties. There may be a transition point where they stay at their son's. They have 4 children, Ruel is the DPOA, and oversees medical appointments. Medications/Allergies - Medications Home Medications: Ambulatory Orders Medication Instructions Recorded Confirmed Deferasirox 180 mg PO DAILY 01/03/20 07/21/20 Sertraline HCl 50 mg PO DAILY 01/03/20 07/21/20 predniSONE [Prednisone] 5 mg PO DAILY 01/03/20 07/21/20 Losartan Potassium 25 mg PO DAILY 02/24/20 07/21/20 Luspatercept-Aamt [Reblozyl] 75 mg SUBQ .Q3 WEEKS 02/24/20 07/21/20 Vit A/Vit C/Vit E/Zinc/Copper 1 tab PO DAILY 02/24/20 07/21/20 [Preservision Areds Softgel] Cholecalciferol (Vitamin D3) 2,000 units PO DAILY 03/11/20 07/21/20 [Vitamin D3] Magnesium 400 mg PO DAILY 03/11/20 07/21/20 Melatonin/Pyridoxine [Melatonin 5 5 mg PO QPM 03/23/20 07/21/20 mg Tablet] Loperamide [Imodium] 2 mg PO QPM PRN 04/15/20 07/21/20 Ciprofloxacin [Cipro] 500 mg PO BID MDD 7 days 05/14/20 07/21/20 D-Mannose [Mannxtra] 500 mg PO BID 07/21/20 07/21/20 Doxepin Oral Soln [SINEquan ORAL 4 mg PO QPM 07/21/20 07/21/20 SOLN] - Allergies Allergies/Adverse Reactions: Allergies Allergy/AdvReac Type Severity Reaction Status Date / Time Sulfa (Sulfonamide Allergy Unknown Verified 07/21/20 20:56 Antibiotics) morphine AdvReac Hallucinati Verified 07/21/20 20:56 ons nitrofurantoin AdvReac Unknown Verified 07/21/20 20:55 [From Macrobid] Review of Systems - Constitutional Constitutional: reports: Fatigue (worsening), Weakness (fluctuates), Weight loss - Eyes Eyes: reports: Vision loss (macular degeneration) - Ears, Nose & Throat Ears, Nose & Throat: reports: Hearing loss, Hearing aids, Dry mouth - Cardiovascular Cardiovascular: reports: Decr. exercise tolerance. denies: Chest pain - Respiratory Respiratory: reports: SOB with exertion (note with conversation as well). denies: Cough, Wheezing, SOB at rest - Gastrointestinal Gastrointestinal: reports: Diarrhea (intermittent), Good appetite. denies: Nausea, Reflux/heartburn - Genitourinary Genitourinary: reports: Dysuria, Incontinence - Musculoskeletal Musculoskeletal: reports: Muscle aches, Stiffness, Limited range of motion, Muscle weakness, Assistive devices (using walker; very slow; needing cueing; ataxic decreased to few steps only), Transfer issues (needing assistance get from sitting to standing uses walker when not feeling well or end of day) - Integumentary Integumentary: reports: Dryness - Neurological Neurological: reports: General weakness, Memory problems (having slow processing during visit; aware of STM issues and word finding; defers to daughter frequently; seems worse than last visit), Other (word finding issues; slow to respond; processing problematic). denies: Headache, Seizures - Psychiatric Psychiatric: reports: Anxiety (mild) - Hematologic/Lymphatic Hematologic/Lymph: reports: Anemia (Transfusion this last Sunday), Recurrent infections (hx of UTIs;) - All Other Systems All Other Systems: reports: Other (limited given STM deficits) Physical Exam - Vital Signs Temperature: 97.2 C Pulse Rate: 100 Respiratory Rate: 18 O2 Saturation: 100 (ra @ rest) Blood Pressure: 132/82 - Physical Exam General Appearance: positive: No acute distress, Alert Eyes Bilateral: positive: Other (periorbital edema). negative: No scleral icterus (slight icterus noted) ENT: positive: No signs of dehydration Neck: positive: Trachea midline Cardiovascular: positive: Regular rate & rhythm, Tachycardia Respiratory: positive: No respiratory distress (denies respiratory distress though gets breathless with conversation), Breath sounds nml, Diminished in bases. negative: Wheezes, Rales, Rhonchi Abdomen: positive: Soft, Tenderness (lower abdomine with deep palpation) Skin: positive: Pallor, Dryness, Bruising, Wound (drying hematoma right s hin/thick no s/s infection) Extremities: positive: Pedal edema (mostly resolved, some pooling in feed) Neurologic/Psychiatric: positive: Mood/affect nml, Disoriented to time, Weakness, Flat affect Palliative Care - POLST Patient has POLST: Yes POLST Status: DNR, Selective Treatment Pain: No pain Feelings of wellbeing/Perceived Quality of Life: Fair, Worsening Sleep: Variable sleep pattern Performance Status: Patient's activity tolerance continues to decline, functional status is declining as well. Most days is unable to walk more than a few feet. Is mostly wheelchair-bound, is dependent for toileting, pericare, and bathing. Is able to self feed. I would put her at a PPS of 50% - Palliative Care Discussion: Patient does continue to decline, presents is failure to thrive. She is continuing with her medication for MDS, though did require a transfusion this last week. Daughter feels they are not ready to withdraw any kind of care at this point in time. She does see her mother is failing, but currently is in no distress. They are getting ready to transition to an alternative living situation, as patient's care needs are increasing it has been of very long year. This will allow other siblings to participate more in the care, as well as access to their parents as they are declining. Unfortunately there is been a "glitch" in the transition to assisted living, discussed transition plan. Encouraged to continue to move forward even if includes a bridge for transition to brothers for short period of time. Patient does not seem in any kind of existential or physical distress. She denies any worries or concerns. Her he is quite elderly as well, does worry quite a bit about her, as he sees her decline as well. Impression and Recommendations - Palliative Care Impression: This is a very fragile 85-year-old woman with multiple comorbidities, longstanding primary myelofibrosis with recent transfusion. Continues with symptoms of cystitis and intermittent discomfort, declining functional status, and fluctuating cognitive status with decline. She artem at high risk for falls, sequela from her UTIs and expected trajectory to continue decline. Palliative care providing support regarding symptom management anticipatory guidance, [place] Recommendations/Counseling Done: 1. Right eugene wound. This is the results of healing hematoma. Does have thick eschar, no signs or symptoms of infection or drainage. Instructed this point in time to just keep dry and protected. Will eventually fall off, patient with very slow healing and poor circulation, at this point in time less intervention is better. Daughter verbalizes understanding. 2. Dysuria. This is multifactorial, attributed this point time to interstitial cystitis. They have had some improvement with cutting out coffee and low acid diet. They do use Azo's intermittently, has not really had progression to UTIs at this point. We will continue to monitor. 3. Late onset Alzheimer's with behavioral disturbances. Patient does fluctuate, has been having both cognitive and functional decline, with increasing care needs. They have found alternative placement, unfortunately this has been delayed but plan is to continue with transition. Counseling provided regarding input. 4. Fatigue. This too is multifactorial. Patient did receive a transfusion, daughter has not noticed much improvement nor has patient. Patient continues at high fall risk, they do have as much medication and there is possible, including caregiver oversight, cueing with ambulation, and is using mostly wheelchair. No changes made. 5. Advanced care planning. Patient continues to decline, family is not ready to withdraw care yet, though recognize she is quite fragile and could have a transition at any time. They do have a POLST with DN AR/DNI as selective treatments in patients DURABLE POWER OF TRAFFIC RATE CLERK is Ruel Beltran her son [phone]. Given transition of settings, if patient were to transition [facility], Sejal believes her brother would have her at his home with hospice.Unfortunately at this point unable to identify palliative care service to transition them to, they do have close ties with her current oncologist, [place] with greater than 50% of this done in counseling and caregiver support regarding patient's ongoing decline, anticipatory guidance, and symptom management.
== END 2020-09-15 14:01 | disposition home or self-care (01) ==
LOC: PC 14:00
PROVIDERS: ATTEND Nurse Practitioner Adult Health
DX: Z51.5 Encounter for palliative care (principal); R62.7 Adult failure to thrive; D75.81 Myelofibrosis; G30.1 Alzheimer's disease with late onset; F02.81 Dementia in other diseases classified elsewhere, unspecified severity, with behavioral disturbance; R32 Unspecified urinary incontinence; K58.9 Irritable bowel syndrome, unspecified; H35.30 Unspecified macular degeneration; H91.90 Unspecified hearing loss, unspecified ear; M19.90 Unspecified osteoarthritis, unspecified site; G40.909 Epilepsy, unspecified, not intractable, without status epilepticus; R53.83 Other fatigue; Z74.09 Other reduced mobility; R53.1 Weakness; D64.9 Anemia, unspecified; S81.801A Unspecified open wound, right lower leg, initial encounter; N30.10 Interstitial cystitis (chronic) without hematuria; Z66 Do not resuscitate; Z79.899 Other long term (current) drug therapy; Z79.52 Long term (current) use of systemic steroids; Z91.81 History of falling; Z87.440 Personal history of urinary (tract) infections
CPT/HCPCS: 99349